=== PATIENT | male | born 1940 | race Caucasian/White ===

== ENCOUNTER 2020-08-31 19:16 | Emergency (ER) | payer MEDICARE, SELFPAY ==
--- NOTE | ~2020-08-31 | CT_ITS ---
EXAMINATION: CT ABDOMEN AND PELVIS WITHOUT CONTRAST CLINICAL INFORMATION: Left-sided back and flank pain. Concern for fracture. Rule out stones or mass. COMPARISON: No priors. TECHNIQUE: Multidetector volumetric imaging was performed from the superior aspect of the liver through the pubic symphysis. Sagittal and coronal reformatted images were obtained on the technologist's workstation. This CT examination was performed using dose optimization techniques as appropriate, variously including the following: *Automated exposure control *Adjustment of mA and/or kV according to patient size (this includes techniques or standardized protocols for targeted exams where dose is matched to indication/reason for exam; i.e. extremities or head) *Use of iterative reconstruction technique DLP: 904 mGy-cm FINDINGS: LINES AND TUBES: None. LOWER THORAX: Partially visualized right lower lobe calcification, likely a granuloma. Lung bases are clear. Heart is normal in size. No pericardial effusion or thickening. HEPATOBILIARY: Liver is normal in size, contour, and attenuation. No focal hepatic lesions. The gallbladder is present and otherwise unremarkable. No biliary dilatation. SPLEEN: Punctate splenic calcifications likely small granulomas. Small splenule noted. PANCREAS: Mild atrophy. No solid or cystic pancreatic lesion. Main pancreatic duct is normal in caliber. ADRENALS: Normal. KIDNEYS/URETERS: Right kidney is atrophic. Normal left kidney. Left ureter is normal throughout its course. Right ureter is normal throughout its course. BLADDER: Normal. PELVIC ORGANS: Prostate is enlarged. Seminal vesicles are normal in caliber. GI TRACT: No dilated or thick walled loops of bowel. Diverticulosis. No evidence of diverticulitis. The appendix is unremarkable. PERITONEUM/RETROPERITONEUM AND MESENTERY: No intraperitoneal free air or fluid. LYMPH NODES: No pathologically enlarged lymph nodes. VESSELS: Normal in caliber. BONES AND SOFT TISSUES: No aggressive osseous lesions. Multilevel degenerative disc disease. Small fat-containing left inguinal hernia. CT/CT abdomen pelvis wo con IMPRESSION: --No renal, ureteral, or urinary bladder calculi. --Atrophic right kidney. --No acute fracture. --Colonic diverticulosis. No evidence of diverticulitis. --Prostatomegaly. --Small fat-containing left inguinal hernia. --Mild pancreatic atrophy.
[2020-08-31 19:17] VITALS: BMI 30.4
[2020-08-31 19:24] VITALS: BP 134/79; PULSE 72; RESP 18; TEMP 37; O2SAT 98
--- NOTE | 2020-08-31 21:09 | ED.BACK ---
HPI - Back Pain/Injury General Chief Complaint: Back Pain/Injury Stated Complaint: Back pain Time Seen by Provider: 08/31/20 19:25 History of Present Illness HPI Narrative: Patient complains of worsening back pain with movement since a fall where he tripped and fell 2 weeks ago in his house and fell backwards onto his buttocks, pain has not gone away and in fact has gotten slightly worse, there is no numbness weakness or tingling there is no radiation of pain there is no head injury no neck pain, he did not faint or feel faint and he remembers everything about the trip and fall Related Data Allergies Allergy/AdvReac Type Severity Reaction Status Date / Time codeine Allergy Unknown Unknown Verified 08/31/20 19:22 naproxen Allergy Unknown Unknown Verified 08/31/20 19:22 Review of Systems Review of Systems: Positive for back pain Negatives are no fever no chills no dizziness no weakness no fainting no feeling faint no headache no neck pain no chest pain no shortness of breath no changes to bowel or bladder no incontinence no dysuria no skin rash no wounds no motor weakness no loss of sensation Yes all other systems are reviewed and are negative PMFSH Past Medical History Source: nursing notes reviewed Medical History (Updated 08/31/20 @ 19:20 by Karen Ferrell) Gout HTN (hypertension) Social History Social History Smoked in Last 30 Days: No Use of substances other than those prescribed or required for medical reasons: No Advance Directives: No Physical Exam Vital Signs: Vital Signs: Last Vital Signs Temp 98.6 F 08/31/20 19:24 Pulse 72 08/31/20 19:24 Resp 18 08/31/20 19:24 BP 134/79 08/31/20 19:24 Pulse Ox 98 08/31/20 19:24 Body Mass Index 30.4 General appearance no acute distress Head is normocephalic atraumatic Neck is supple nontender Chest is clear to auscultation bilateral Heart no murmur Abdomen soft nontender The back had lower lumbar paraspinal tenderness worse on the right side, there was no focal bony tenderness no deformities no changes to the skin no redness no wounds no rashes, pain was easily reproduced with movement Extremities full range of motion x4 Neuro no gross motor or sensory deficit Course Course Course Narrative: Patient remains comfortable in the ER with his family Pending CT results case was signed out to physician eddiato at 21:00 The plan is to follow and address any abnormalities on the CT and for discharge patient is requesting lidocaine patch Tylenol and muscle relaxer
== END 2020-08-31 22:14 | disposition home or self-care (01) ==
PROVIDERS: Emergency Provider Emergency Medicine
DX: M54.5 Low back pain (principal); I10 Essential (primary) hypertension
CPT/HCPCS: 74176; 99284

== ENCOUNTER 2023-07-06 20:15 | Observation (INO) | payer MEDICARE, SELFPAY ==
--- NOTE | 2023-07-06 | ECG_ITS ---
Test Reason : BRADYARDICYA Blood Pressure : / mmHG Vent. Rate : 080 BPM Atrial Rate : 000 BPM P-R Int : 000 ms QRS Dur : 080 ms QT Int : 378 ms P-R-T Axes : 000 -43 045 degrees QTc Int : 435 ms Artifact in tracing Likely sinus rhythm Left axis deviation Abnormal ECG No previous ECGs available Referred By: Generic ED Physician Electronically Signed By:GRACY OSMAN
--- NOTE | ~2023-07-06 | XR_ITS ---
EXAMINATION: XR CHEST CLINICAL INFORMATION: Weakness. COMPARISON: None available. TECHNIQUE: 2 views of the chest were obtained. FINDINGS: Lungs are clear. No pulmonary vascular congestion. There is no pleural effusion. The heart size is normal. The cardiac and mediastinal contours are normal. . There are multilevel degenerative changes of dorsal spine. XR/XR chest 2V IMPRESSION: Unremarkable examination.
--- NOTE | 2023-07-06 20:36 | MHC.EDTECH ---
PATIENT EKG TAKEN AND WAS READ BY PROVIDER .
[2023-07-06 20:42] VITALS: BP 137/71; PULSE 83; RESP 18; TEMP 37.3; O2SAT 95; BMI 32.2
--- NOTE | 2023-07-06 20:47 | ED_ITS ---
HPI - General Adult General Chief complaint: General Medical Stated complaint: heart monitor placed today/chills/shaking Time Seen by Provider: 07/07/23 00:16 Source: patient Mode of arrival: ambulatory Limitations: no limitations History of Present Illness ED Provider: corrie GARDNER narrative: Patient is 82 years old with history of AFib went to [facility] for bradycardia Holter was placed came home with severe chills and weakness no cough no urinary complaints no abdominal pain no nausea vomiting patient is apparently normal prior to getting the Holter placed Related Data Previous Rx's ?Medication ?Instructions ?Recorded cyclobenzaprine 10 mg tablet 10 mg PO TID PRN muscle spasm #14 08/31/20 tabs lidocaine 4 % topical patch 1 patch topical DAILY PRN pain #10 08/31/20 ea Allergies Allergy/AdvReac Type Severity Reaction Status Date / Time codeine Allergy Unknown Unknown Verified 07/06/23 20:47 naproxen Allergy Unknown Unknown Verified 07/06/23 20:47 Review of Systems 2 Review of Systems: Yes all other systems are reviewed and are negative [facility] Past Medical History Medical History Gout HTN (hypertension) Social History Social History Smoked in Last 30 Days: No Use of substances other than those prescribed or required for medical reasons: No Advance Directives: No Advance Directives Information Provided: No Do you have a plan to hurt others: No Plan Physical Exam ED Vital Signs: Vital Signs - 24 hr 07/06/23 20:42 07/06/23 22:56 07/07/23 00:31 Temperature 99.2 F 100.1 F 99.7 F Pulse Rate 83 88 84 Respiratory Rate 18 18 20 Blood Pressure 137/71 137/62 125/67 Pulse Oximetry 95 93 94 Oxygen Delivery Method Room Air Room Air Room Air 07/07/23 01:35 07/07/23 01:45 07/07/23 02:15 Temperature 99.0 F Pulse Rate 79 78 78 Respiratory Rate 20 17 22 H Blood Pressure 116/61 114/61 111/65 Pulse Oximetry 95 94 95 Oxygen Delivery Method Room Air Room Air 07/07/23 04:32 07/07/23 06:17 Temperature 98.0 F 98.0 F Pulse Rate 78 61 Respiratory Rate 16 14 Blood Pressure 133/79 126/63 Pulse Oximetry 97 96 Oxygen Delivery Method Room Air Room Air BMI result Body Mass Index 32.2 Appearance: Alert. Oriented X3. No acute distress. Eyes: No pallor or icterus ENT: Pharynx normal. Oral Mucosa moist Neck: Normal inspection. Neck supple. CVS: Normal heart rate and rhythm. Pulses normal. Respiratory: No respiratory distress. Equal air entry bilateral, no wheezing/rales/rhonchi Abdomen: Soft and nontender. Bowel sounds are present, no mass palpable, no CVA tenderness Skin: Skin warm and dry. Normal skin color. Normal skin turgor. Extremities: No lower extremity edema. No calf tenderness Neuro: Oriented X 3. No motor deficit. Course Course Course Narrative: RME performed by Liliana Mathew PA-C. Patient is an 82 year old assigned male at presenting to the emergency department with sudden onset chills, extremity shaking, and feeling generally unwell. Patient has a holter monitor on to monitor for bradycardic events. Detailed physical exam and review of systems are deferred to the physical biochemist. EKG, labs, imaging, and swabs ordered. Patient placed back in the waiting room pending room availability and results. Medications Administered Discontinued Medications Generic Name Dose Route Start Last Admin Trade Name Freq PRN Reason Stop Dose Admin Acetaminophen 650 mg 07/07/23 00:18 07/07/23 00:29 Acetaminophen 325 Mg Tablet PO 07/07/23 00:19 650 mg ONCE ONE Administration Sodium Chloride 1,000 mls @ 999 mls/hr 07/07/23 00:18 07/07/23 01:29 Ns IV 07/07/23 01:18 Infused .Q1H1M ONE Infusion Ceftriaxone Sodium 1 gm/ 50 mls @ 100 mls/hr 07/07/23 00:18 07/07/23 01:00 Sodium Chloride IV 07/07/23 00:47 Infused ONCE ONE Infusion Medical Decision Making Medical Decision Making [facility] Narrative: Patient with high fever with leukocytosis source of infection on clear will admit patient for bacteremia IV antibiotic was given pending blood culture Differential Diagnosis Differential Diagnoses: The differential diagnosis associated with the presentation includes Pneumonia/UTI/bacteremia Admission/Observation Consideration of admission/observation: Escalation of care including admission/observation considered Consult Healthcare Provider Management of the patient was discussed with: Hospitalist Lab Data MDM Lab Attestation statement: I reviewed the patient's lab results. 07/06/23 21:10 07/06/23 21:10 Labs: Lab Results 07/06/23 07/07/23 07/07/23 Range/Units 21:10 00:27 01:57 WBC 20.1 H (4.8-10.8) X10*3/uL RBC 4.22 L (4.60-5.80) X10*6/uL Hgb 14.0 (14.0-18.0) g/dl Hct 41.8 L (42.0-52.0) % MCV 99.1 H (80.0-98.0) fL MCH 33.2 H (27.0-33.0) pg MCHC 33.5 (31.0-36.0) g/dl RDW 16.0 (11.0-16.0) % Plt Count 320 (160-400) X10*3/uL MPV 10.7 (9.4-12.4) fL Immature Gran % (Auto) 0.4 (0.0-0.4) % Neut % (Auto) 89.4 H (45-73) % Lymph % (Auto) 5.0 L (20-40) % [place] % (Auto) 4.6 (2-11) % Eos % (Auto) 0.3 (0-4) % Baso % (Auto) 0.3 (0-2) % Lymph # (Auto) 1.0 L (1.2-4.9) X10*3/uL [place] # (Auto) 0.9 (0.1-1.2) X10*3/uL Eos # (Auto) 0.1 (0.0-0.4) X10*3/uL Baso # (Auto) 0.1 (0.0-0.2) X10*3/uL Abs Immat Gran (auto) 0.09 H (0.00-0.03) X10*3/uL Absolute Neuts (auto) 17.9 H (2.0-8.3) x10*3/uL Absolute Nucleated RBC 0.000 (0.0-0.012) X10*3/uL Nucleated RBC % (auto) 0.0 (0.0-0.2) /100WBC PT 16.8 H (11.1-13.3) SEC INR 1.4 H (0.9-1.1) APTT 34.5 (26.0-36.8) SEC Sodium 139 (135-145) mmol/L Potassium 4.2 (3.3-5.1) mmol/L Chloride 106 (96-108) mmol/L Carbon Dioxide 21 L (22-29) mmol/L Anion Gap 16 (12-20) BUN 9 (9-16) mg/dL Creatinine 1.15 (0.5-1.4) mg/dL Estim Creat Clear Calc 56.4 Estimated GFR > 60 Random Glucose 112 (60-115) mg/dL Lactic Acid 1.3 (0.5-2.0) mmol/L Calcium 9.3 (8.4-10.2) mg/dL Magnesium 2.2 (1.6-2.6) mg/dL Total Bilirubin 1.0 (0.0-1.0) mg/dL AST 22 (5-37) U/L ALT 18 (0-40) U/L Alkaline Phosphatase 138 H (39-117) U/L Troponin I High Sens 17.9 (<3.5-35.0) ng/L Total Protein 7.6 (6.5-8.0) g/dL Albumin 4.3 (3.5-5.0) g/dL Urine Color Yellow Urine Appearance Clear Urine pH 7.0 (5.0-9.0) Ur Specific [place] 1.015 (1.005-1.025) Urine Protein Negative (Neg-Trace) mg/dL Urine Glucose (UA) Negative (Negative) mg/dL Urine Ketones Negative (Negative) mg/dL Urine Blood Negative (Negative) Urine Nitrite Negative (Negative) Ur Leukocyte Esterase Negative (Negative) Influenza Type A (PCR) NEGATIVE (Negative) Influenza Type B (PCR) NEGATIVE (Negative) RSV RNA Qual (PCR) NEGATIVE (Negative) SARS-CoV-2 RNA (RT-PCR) NEGATIVE (Negative) Independent Interpretation I performed an independent interpretation of an: Plain X-Ray Radiology Impression Discussion of test interpretation with radiology: I have reviewed the radiologist's reading. Discharge Plan Discharge Clinical Impression: Fever, Leukocytosis Patient Disposition: Admitted As Inpatient Print Language: Mexican
[2023-07-06 21:15] LABS: MANUAL DIFF FLAG NO
[2023-07-06 21:16] LABS: Basophils Absolute Auto 0.1 X10*3/uL (0.0-0.2); Basophils Percent Auto 0.3 % (0-2); Eosinophils Absolute Auto 0.1 X10*3/uL (0.0-0.4); Eosinophils Percent Auto 0.3 % (0-4); Hematocrit 41.8 % (42.0-52.0); Imm Gran Abs Auto 0.09 X10*3/uL (0.00-0.03); Imm Gran Pct Auto 0.4 % (0.0-0.4); Mean Corpuscular HGB Conc 33.5 g/dl (31.0-36.0); Mean Corpuscular Hemoglobin 33.2 pg (27.0-33.0); Mean Corpuscular Volume 99.1 fL (80.0-98.0); Mean Platelet Volume 10.7 fL (9.4-12.4); Monocytes Absolute Auto 0.9 X10*3/uL (0.1-1.2); Monocytes Percent Auto 4.6 % (2-11); Neutrophils Absolute Auto 17.9 x10*3/uL (2.0-8.3); Neutrophils Percent Auto 89.4 % (45-73); Platelet Count 320 X10*3/uL (160-400); Red Blood Count 4.22 X10*6/uL (4.60-5.80); White Blood Count 20.1 X10*3/uL (4.8-10.8)
--- NOTE | 2023-07-06 21:16 | MHC.EDTECH ---
PATIENT BLOOD DRAWN AND RSV/COVID SWAB COLLECTED AND SENT TO LAB .
[2023-07-06 21:23] LABS: INTERNATIONAL NORM RATIO 1.4 (0.9-1.1); Prothrombin Time 16.8 SEC (11.1-13.3)
[2023-07-06 21:26] LABS: Partial Thromboplastin Time 34.5 SEC (26.0-36.8)
[2023-07-06 21:42] LABS: Alanine Aminotransferase 18 U/L (0-40); Albumin Level 4.3 g/dL (3.5-5.0); Alkaline Phosphatase 138 U/L (39-117); Anion Gap 16 (12-20); Aspartate Amino Transferase 22 U/L (5-37); Blood Urea Nitrogen 9 mg/dL (9-16); Calcium 9.3 mg/dL (8.4-10.2); Carbon Dioxide 21 mmol/L (22-29); Chloride 106 mmol/L (96-108); Creatinine Clr Calc Pharmacy 56.4; Estimated Glomerular Filt Rate > 60; Glucose Random 112 mg/dL (60-115); Magnesium 2.2 mg/dL (1.6-2.6); Potassium 4.2 mmol/L (3.3-5.1); Sodium 139 mmol/L (135-145); Total Protein 7.6 g/dL (6.5-8.0)
[2023-07-06 21:49] LABS: Troponin-I High Sensitivity 17.9 ng/L (<3.5-35.0)
[2023-07-06 22:09] LABS: Influenza A PCR NEGATIVE (Negative); Influenza B PCR NEGATIVE (Negative); Resp Syncy Virus RNA Qual PCR NEGATIVE (Negative); SARS COV2 PCR INHOUSE NEGATIVE (Negative)
[2023-07-06 22:56] VITALS: BP 137/62; PULSE 88; RESP 18; TEMP 37.8; O2SAT 93
--- NOTE | 2023-07-06 23:03 | PC.NURSE ---
pt from home, a&ox4, respirations even and unlabored, reports increasing dizziness and weakness since 530pm today. pt reports being seen at [facility] and being put on a halter monitor due to pt being bradycardic. pt denies n/v/d at this time. pt 2 person assist from wheelchair to bed. pt placed on awake overnight monitor. 18G placed in left AC.
--- NOTE | 2023-07-06 23:45 | PC.NURSE ---
aware of pt vital signs at this time.
[2023-07-07] VITALS (11 sets, daily range): BP systolic 111–155; BP diastolic 43–79; PULSE 56–84; RESP 14–22; TEMP 36.4–37.6; O2SAT 94–97; BMI 28.3
--- NOTE | 2023-07-07 00:04 | MHC.EDTECH ---
PT changed into a hospital gown and placed on a glove turner and former automatic. Red fall precaution socks and wristband put on pt
[2023-07-07] MEDS: 0.9 % Sodium Chloride 1,000 ML 999 ML IV (00:28)
[2023-07-07] MEDS: Acetaminophen 325 MG TABLET 650 MG PO (00:29)
[2023-07-07] MEDS: cefTRIAXone sodium 1 GM in 0.9 % Sodium Chloride 50 ML IV (00:30)
--- NOTE | 2023-07-07 00:32 | PC.NURSE ---
pt medicated epr apr, for fever and antibiotics administered. fluid bolus began at this time.
[2023-07-07 00:49] LABS: Lactic Acid 1.3 mmol/L (0.5-2.0)
--- NOTE | 2023-07-07 01:56 | PC.NURSE ---
urine sample obtained and sent to lab.
[2023-07-07 02:04] LABS: Appearance Urine Clear; Color Urine Yellow; Glucose Urine UA Negative (Negative); Leukocyte Esterase Urine Negative (Negative); Nitrite Urine Negative (Negative); Specific Gravity - Urine 1.015 (1.005-1.025); Urine Blood Negative (Negative); Urine Ketones Negative (Negative); Urine Protein Negative (Neg-Trace)
--- NOTE | 2023-07-07 09:09 | PC.NURSE ---
a&ox4. vss and up to date. nsr on the supervisor rework. pt resting comfortably in no apparent distress. pt denies pain/has no acute complaints. pt resting comfortably w/ the lights dimmed. no sob/wob noted. family bedside for support. pt pending admission at this time. plan of care ongoing. call brewer placed within reach.
--- NOTE | 2023-07-07 10:07 | PC.NURSE ---
pt speaking w/ hospitalist in regards to plan of care at this time.
--- NOTE | 2023-07-07 11:34 | P.HPHOSP_ITS ---
History of Present Illness Date of Service: 07/07/23 Attending physician on admission: José Luis Gu Chief Complaint: rigors 82-year-old male with history of hypertension, CKD stage 3, paroxysmal atrial fibrillation anticoagulated with Eliquis, mild aortic stenosis presented to the ED earlier last night for evaluation of shaking chills that started shortly after arriving home from [facility] where he had a Holter monitor placed due to bradycardia. He states he went home and a let us and tomato and shortly after developed subjective fevers with rigors and malaise. He denies any other symptoms including known sick contacts, recent illness, sore throat, congestion, headache, abdominal pain, nausea, vomiting, diarrhea, cough, lightheadedness, palpitations, shortness of breath, wheezing, or chest pain. He does endorse an episode of dysuria last night without recurrence but denies any hematuria, increased urinary frequency, urgency, or flank pain. On arrival, patient had mildly elevated temperature of 100.1 degrees, vital signs otherwise stable. No bradycardia noted. He does have a significant leukocytosis of 20.1 with 89.4% neutrophil predominance. Renal function electrolyte levels are normal. Troponin undetectable but within normal limits. Urinalysis is unremarkable. Negative for COVID-19, RSV, influenza. Chest x-ray is unremarkable. EKG shows accelerated junctional rhythm, rate [address]/T-wave abnormality. He will be observed overnight for fever of unspecified origin. Review of Systems 2 Review of Systems: Yes all other systems are reviewed and are negative [facility] Medical History (Updated 07/07/23 @ 11:41 by BLACK Caro) CKD (chronic kidney disease), stage III Aortic stenosis Atrial fibrillation Gout HTN (hypertension) Social History Smoked in Last 30 Days: No Use of substances other than those prescribed or required for medical reasons: No Advance Directives: No Advance Directives Information Provided: No Do you have a plan to hurt others: No Plan Meds Allergies Allergy/AdvReac Type Severity Reaction Status Date / Time codeine Allergy Unknown Unknown Verified 07/06/23 20:47 naproxen Allergy Unknown Unknown Verified 07/06/23 20:47 Home Medications ?Medication ?Instructions ?Recorded ?Confirmed ?Last Taken ?Type apixaban 2.5 mg tablet (Eliquis) 2.5 mg PO BID 07/07/23 07/07/23 07/06/23 History metoprolol tartrate 25 mg tablet 12.5 mg PO BID 07/07/23 07/07/23 07/06/23 History Physical Exam 2 Vital Signs and Narrative: Vital Signs: Last Vital Signs Temp 98.4 F 07/07/23 09:06 Pulse 64 07/07/23 09:06 Resp 16 07/07/23 09:06 BP 113/43 L 07/07/23 09:06 Pulse Ox 96 07/07/23 09:06 O2 Del Method Room Air 07/07/23 09:06 BMI result Body Mass Index 32.2 Constitutional - Awake and Alert, No apparent distress Eyes - PERRLA, EOMI Cardiovascular - S1S2, RRR, II/ systolic ejection murmur, No edema Respiratory - Normal lung expansion, Normal respiratory effort, No respiratory distress, CTA bilaterally Gastrointestinal - NT / ND; +BS; No rebound or guarding Extremities - no calf tenderness bilaterally, no swelling Skin - Warm/Dry Neurological - Alert & oriented x3 Psychological - Appropriate affect Results Labs 07/06/23 21:10 07/06/23 21:10 Labs: Laboratory Results - last 24 hr 07/06/23 07/07/23 07/07/23 21:10 00:27 01:57 MCV 99.1 H MCH 33.2 H MCHC 33.5 RDW 16.0 Plt Count 320 MPV 10.7 Immature Gran % (Auto) 0.4 Neut % (Auto) 89.4 H Lymph % (Auto) 5.0 L [place] % (Auto) 4.6 Eos % (Auto) 0.3 Baso % (Auto) 0.3 Lymph # (Auto) 1.0 L [place] # (Auto) 0.9 Eos # (Auto) 0.1 Baso # (Auto) 0.1 Abs Immat Gran (auto) 0.09 H Absolute Neuts (auto) 17.9 H Absolute Nucleated RBC 0.000 Nucleated RBC % (auto) 0.0 PT 16.8 H INR 1.4 H APTT 34.5 Anion Gap 16 Estim Creat Clear Calc 56.4 Estimated GFR > 60 Random Glucose 112 Lactic Acid 1.3 Calcium 9.3 Magnesium 2.2 Total Bilirubin 1.0 AST 22 ALT 18 Alkaline Phosphatase 138 H Troponin I High Sens 17.9 Total Protein 7.6 Albumin 4.3 Urine Color Yellow Urine Appearance Clear Urine pH 7.0 Ur Specific [place] 1.015 Urine Protein Negative Urine Glucose (UA) Negative Urine Ketones Negative Urine Blood Negative Urine Nitrite Negative Ur Leukocyte Esterase Negative Influenza Type A (PCR) NEGATIVE Influenza Type B (PCR) NEGATIVE RSV RNA Qual (PCR) NEGATIVE SARS-CoV-2 RNA (RT-PCR) NEGATIVE Imaging Radiologist's Impressions: Impressions Chest X-Ray 07/06/23 20:58 IMPRESSION: Unremarkable examination. Assessment and Plan (1) Leukocytosis: Status: Acute (2) Fever: Status: Acute Plan 82-year-old male with history of hypertension, CKD stage 3, paroxysmal atrial fibrillation anticoagulated with Eliquis, mild aortic stenosis to be observed for further evaluation of fever of unknown origin with migraines #Fevers of unknown origin with rigors and leukocytosis -pt reports rigors at home. Low grade fever 100.1 in hospital. WBC 20.1. Lactic acid wnl -CXR negative. UA negative. Will repeat UA given dysuria -Check RPP -Received 1g rocephin in the ED. Hold on further abx for now -Blood cultures pending -Follow cbc/cultures #Cardiac murmur -II/. If BC positive, recommend SWATHI # CKD stage 3 -renal function baseline # hypertension -hold metoprolol due to reported bradycardia and controlled blood pressures # paroxysmal atrial fibrillation-rate controlled -[facility] records reviewed -currently wearing Holter monitor due to bradycardia. EKG with accelerated junctional rhythm -continue Eliquis for anticoagulation. Hold metoprolol DVT prophylaxis-Eliquis DNR/DNI Quality Stroke Does the patient have a stroke diagnosis?: No VTE Prior VTE?: No VTE Risk Level:: Medical - moderate - high VTE Device Contraindication: Treatment Not Indicated VTE Drug Contraindication: N/A - Med Ordered
--- NOTE | 2023-07-07 11:40 | PHA.MEDREC ---
Pharmacy Consult ? Medication Reconciliation Pharmacy has completed the medication reconciliation. spoke with patient to confirm medications. He reports he only took AM doses of his medications yesterday.
--- NOTE | 2023-07-07 12:01 | PC.NURSE ---
report given to GENESIS Pérez in overflow at this time.
[2023-07-07 12:19] LABS: Appearance Urine Clear; Color Urine Yellow; Glucose Urine UA Negative (Negative); Leukocyte Esterase Urine Negative (Negative); Nitrite Urine Negative (Negative); PH 7.5 (5.0-9.0); UMIC TRIGGER UACC YES; Urine Blood Moderate (2+) (Negative); Urine Ketones Negative (Negative); Urine Protein Negative (Neg-Trace)
[2023-07-07 13:05] LABS: Bacteria Urine None Seen (None Seen); Hyaline Casts Urine 0-2 /LPF (0-2); RBC Urine >20 /HPF (0-2); Squamous Epithelial Cell Urine 0-2 /HPF (0-2); WBC Urine 0-5 /HPF (0-5)
[2023-07-07 16:44] LABS: Adenovirus PCR Not Detected (Not Detect.); Bordetella parapertussis PCR Not Detected (Not Detect.); Bordetella pertussis PCR Not Detected (Not Detect.); Chlamydia pneumoniae PCR Not Detected (Not Detect.); Coronavirus 229E PCR Not Detected (Not Detect.); Coronavirus HKU1 PCR Not Detected (Not Detect.); Coronavirus NL63 PCR Not Detected (Not Detect.); Coronavirus OC43 PCR Not Detected (Not Detect.); Human metapneumovirus PCR Not Detected (Not Detect.); Influenza A PCR Not Detected (Not Detect.); Influenza B PCR Not Detected (Not Detect.); Mycoplasma pneumoniae PCR Not Detected (Not Detect.); Parainfluenza 1 PCR Not Detected (Not Detect.); Parainfluenza 2 PCR Not Detected (Not Detect.); Parainfluenza 3 PCR Not Detected (Not Detect.); Parainfluenza 4 PCR Not Detected (Not Detect.); RSV PCR Not Detected (Not Detect.); Rhino/Enterovirus PCR Not Detected (Not Detect.)
[2023-07-07 16:45] LABS: SARS-CoV-2 PCR Not Detected (Not Detect.)
[2023-07-07] MEDS: 0.9 % Sodium Chloride Flush 3 ML SYRINGE IVFLUSH ×2 (17:39→22:54)
[2023-07-07] MEDS: Apixaban 2.5 MG TABLET PO (21:22)
--- NOTE | 2023-07-07 21:54 | MHC.CM.PN ---
NIA 07/06. Original given to patient and copy to medical records. CM met with patient assigned to observation in Over Flow Unit. Pt is waiting for a bed. A&Ox4. Lives with , Puja. 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 Uses a rollator. Has no services. PCP is Cassandra Limon NP. HCP is at home. HCP#1/granddaughter Lena Wen ([phone]). HCP #2/DIL Celia Barahona ([phone]). THRIVE assessment completed-no needs identified. D/C plan: Home without services. Patient will arrange transportation home by family. CM will follow for any discharge needs.
[2023-07-08 02:54] VITALS: BP 160/81; PULSE 65; RESP 18; TEMP 36.3; O2SAT 96
[2023-07-08 06:22] LABS: MANUAL DIFF FLAG NO
[2023-07-08 06:39] LABS: Basophils Absolute Auto 0.1 X10*3/uL (0.0-0.2); Basophils Percent Auto 0.5 % (0-2); Eosinophils Absolute Auto 0.3 X10*3/uL (0.0-0.4); Eosinophils Percent Auto 2.1 % (0-4); Hematocrit 37.8 % (42.0-52.0); Hemoglobin 12.6 g/dl (14.0-18.0); Imm Gran Abs Auto 0.09 X10*3/uL (0.00-0.03); Imm Gran Pct Auto 0.6 % (0.0-0.4); Lymphocytes Absolute Auto 2.4 X10*3/uL (1.2-4.9); Lymphocytes Percent Auto 15.6 % (20-40); Mean Corpuscular HGB Conc 33.3 g/dl (31.0-36.0); Mean Corpuscular Hemoglobin 32.8 pg (27.0-33.0); Mean Corpuscular Volume 98.4 fL (80.0-98.0); Monocytes Absolute Auto 0.9 X10*3/uL (0.1-1.2); Monocytes Percent Auto 5.8 % (2-11); Neutrophils Absolute Auto 11.4 x10*3/uL (2.0-8.3); Neutrophils Percent Auto 75.4 % (45-73); Platelet Count 279 X10*3/uL (160-400); Red Blood Count 3.84 X10*6/uL (4.60-5.80); Red Cell Distribution Width 16.1 % (11.0-16.0); White Blood Count 15.2 X10*3/uL (4.8-10.8)
[2023-07-08 06:46] LABS: Anion Gap 11 (12-20); Blood Urea Nitrogen 10 mg/dL (9-16); Calcium 9.4 mg/dL (8.4-10.2); Carbon Dioxide 23 mmol/L (22-29); Chloride 109 mmol/L (96-108); Creatinine Clr Calc Pharmacy 50.4; Estimated Glomerular Filt Rate 57; Glucose Random 79 mg/dL (60-115); Potassium 3.9 mmol/L (3.3-5.1); Sodium 139 mmol/L (135-145)
[2023-07-08 08:00] VITALS: BP 145/69; PULSE 60; RESP 12; TEMP 37.3; O2SAT 97
[2023-07-08] MEDS: Apixaban 2.5 MG TABLET PO (08:14)
[2023-07-08] MEDS: 0.9 % Sodium Chloride Flush 3 ML SYRINGE IVFLUSH (08:14)
[2023-07-08 12:00] VITALS: BP 136/66; PULSE 60; RESP 12; TEMP 36.2; O2SAT 97
--- NOTE | 2023-07-08 12:35 | P.DS_ITS ---
DS: Providers Provider Date of Service: 07/08/23 Date of admission: 07/07/23 11:31 Date of discharge: 07/08/23 Primary care physician: Cassandra Limon NP Attending physician on discharge: José Luis Gu Discharging clinician: Brooklynn Torres DS: Diagnosis Discharge Diagnosis (1) Leukocytosis: Status: Acute (2) Fever: Status: Acute DS: Summary Hospital Course Hospital Course: From H&P on the day of admission 82-year-old male with history of hypertension, CKD stage 3, paroxysmal atrial fibrillation anticoagulated with Eliquis, mild aortic stenosis presented to the ED earlier last night for evaluation of shaking chills that started shortly after arriving home from [facility] where he had a Holter monitor placed due to bradycardia. He states he went home and a let us and tomato and shortly after developed subjective fevers with rigors and malaise. He denies any other symptoms including known sick contacts, recent illness, sore throat, congestion, headache, abdominal pain, nausea, vomiting, diarrhea, cough, lightheadedness, palpitations, shortness of breath, wheezing, or chest pain. He does endorse an episode of dysuria last night without recurrence but denies any hematuria, increased urinary frequency, urgency, or flank pain. On arrival, patient had mildly elevated temperature of 100.1 degrees, vital signs otherwise stable. No bradycardia noted. He does have a significant leukocytosis of 20.1 with 89.4% neutrophil predominance. Renal function electrolyte levels are normal. Troponin undetectable but within normal limits. Urinalysis is unremarkable. Negative for COVID-19, RSV, influenza. Chest x-ray is unremarkable. EKG shows accelerated junctional rhythm, rate [address]/T-wave abnormality. He will be observed overnight for fever of unspecified origin. Fevers and leukocytosis pt reports rigors at home. Low grade fever 100.1 in hospital. WBC 20.1. Lactic acid wnl CXR negative. UA negative. Repeat UA with microscopic hematuria but no white cells or bacteria to suggest infection. Respiratory pathogen panel also negative. Patient denies abdominal pain, diarrhea, respiratory symptoms. No further fever patient feels well. Blood cultures negative at 24 hours, white blood cell count trending down to 15. Patient prefers to return home, he understands that blood cultures are only negative at 24 hours. Advise that we would call to have him return to the hospital if blood cultures turn positive. He understands and is in agreement with the current plan paroxysmal atrial fibrillation-rate controlled -[facility] [place] -currently wearing Holter monitor due to bradycardia. EKG with accelerated junctional rhythm -continue Eliquis for anticoagulation. Hold metoprolol. Recommend outpatient follow-up with at [facility] Time Attestation Discharge Coordination Time (in mins): 32 Quality: Safe Use of Opioids Does Pt have an Active Cancer Diagnosis on the Problem List?: No Quality: Stroke Does the patient have a stroke diagnosis?: No Physical Exam Vital Signs: Vital Signs: Last Vital Signs Temp 99.1 F 07/08/23 08:00 Pulse 60 07/08/23 08:00 Resp 12 07/08/23 08:00 BP 145/69 H 07/08/23 08:00 Pulse Ox 97 07/08/23 08:00 O2 Del Method Room Air 07/08/23 08:00 BMI result Body Mass Index 28.3 Const: General: cooperative, comfortable, no acute distress, alert and awake Orientation/consciousness: patient oriented x3 Neuro: General: patient oriented x3 DS: Data Data Completed and Pending Labs on day of discharge: Laboratory Results - last 24 hr 07/07/23 07/07/23 07/08/23 12:10 15:35 05:42 WBC 15.2 H RBC 3.84 L Hgb 12.6 L Hct 37.8 L MCV 98.4 H MCH 32.8 MCHC 33.3 RDW 16.1 H Plt Count 279 MPV 11.0 Immature Gran % (Auto) 0.6 H Neut % (Auto) 75.4 H Lymph % (Auto) 15.6 L [place] % (Auto) 5.8 Eos % (Auto) 2.1 Baso % (Auto) 0.5 Lymph # (Auto) 2.4 [place] # (Auto) 0.9 Eos # (Auto) 0.3 Baso # (Auto) 0.1 Abs Immat Gran (auto) 0.09 H Absolute Neuts (auto) 11.4 H Absolute Nucleated RBC 0.000 Nucleated RBC % (auto) 0.0 Sodium 139 Potassium 3.9 Chloride 109 H Carbon Dioxide 23 Anion Gap 11 L BUN 10 Creatinine 1.21 Estim Creat Clear Calc 50.4 Estimated GFR 57 Random Glucose 79 Calcium 9.4 Urine Color Yellow Urine Appearance Clear Urine pH 7.5 Ur Specific [place] 1.010 Urine Protein Negative Urine Glucose (UA) Negative Urine Ketones Negative Urine Blood Moderate (2+) H Urine Nitrite Negative Ur Leukocyte Esterase Negative Urine RBC >20 H Urine WBC 0-5 Ur Squamous Epith Cells 0-2 Urine Bacteria None Seen Hyaline Casts 0-2 Respiratory Panel Zeng See Note Adenovirus (Rapid PCR) Not Detected B.pert (TEM-PCR) Not Detected B.parapertussis DNA PCR Not Detected C. pneumoniae DNA (PCR) Not Detected Coronavirus OC43 (PCR) Not Detected Coronavirus HKU1 (PCR) Not Detected Coronavirus 229E (PCR) Not Detected Coronavirus NL63 (PCR) Not Detected Human Metapneumovir PCR Not Detected Influenza A (RT-PCR) Not Detected Influenza B (RT-PCR) Not Detected M. pneumoniae (PCR) Not Detected Parainfluenza 1 (PCR) Not Detected Parainfluenza 2 (PCR) Not Detected Parainfluenza 3 (PCR) Not Detected Parainfluenza 4 (PCR) Not Detected RSV (PCR) Not Detected Entero/Rhino (PCR) Not Detected SARS-CoV-2 RNA (RT-PCR) Not Detected Preliminary micro results at discharge 07/07/23 00:27 Blood Culture - Preliminary Blood - Venous No growth after 24 hours. 07/07/23 00:27 Blood Culture - Preliminary Blood - Venous No growth after 24 hours. Discharge Plan Discharge Anticipated Discharge Date/Time: 07/08/23 12:40 Patient Disposition: Home, Self-Care Referrals: Cassandra Limon NP [Primary Care Provider] - 1 Week Discharge Medications: Continued Eliquis 2.5 mg tablet 2.5 mg PO BID Held metoprolol tartrate 25 mg tablet 12.5 mg PO BID Hold Instructions: Hold until discussion with PCP or Cardiology Discharge Orders: Discharge Order (Routine); Ordered 07/08/23 Ordered By: Brooklynn Torres Activity on Discharge: As tolerated Stand Alone Forms: Patient Portal Discharge page Print Language: Georgian Care Plan Goals: See below Health Concerns: Fever Leukocytosis Microscopic hematuria Plan of Treatment: No source of infection was identified. Chest x-ray with no evidence of pneumonia. Urinalysis with no evidence of UTI. Respiratory pathogen panel negative Blood cultures negative at 24 hours. We will call to return to the hospital if blood cultures turn positive as discussed Call to schedule a follow-up appointment with your primary care provider Call PCP or return to the emergency department with new or worsening symptoms Assessment: See discharge summary
--- NOTE | 2023-07-08 12:59 | MHC.CM.PN ---
DP: PT HAS BEEN MEDICALLY CLEARED FOR DC HOME, NO SERVICES. PT HAS OWN RIDE HOME
[2023-07-08 16:00] VITALS: BP 133/78; PULSE 67; RESP 12; TEMP 36.4; O2SAT 96
== END 2023-07-08 17:02 | disposition home or self-care (01) ==
LOC: HO.ED 07-07 07:30 → HO.EDOVER 07-07 11:36 → HO.S3 07-07 19:48
PROVIDERS: Physician Assistant Medical; Admitting Provider Physician Assistant; Emergency Provider Internal Medicine; PCP Nurse Practitioner Family; Visit Provider Physician Assistant Medical
DX: D72.829 Elevated white blood cell count, unspecified (principal); R50.9 Fever, unspecified; R00.1 Bradycardia, unspecified; M10.9 Gout, unspecified; I12.9 Hypertensive chronic kidney disease with stage 1 through stage 4 chronic kidney disease, or unspecified chronic kidney disease; N18.30 Chronic kidney disease, stage 3 unspecified; I35.0 Nonrheumatic aortic (valve) stenosis; I48.0 Paroxysmal atrial fibrillation; Z79.01 Long term (current) use of anticoagulants; Z03.818 Encounter for observation for suspected exposure to other biological agents ruled out
CPT/HCPCS: 0241U; 36415; 71046; 80048; 80053; 81001; 81003; 83605; 83735; 84484; 85025; 85610; 85730; 87040; 87633; 93005; 96365; 99221; 99285; J0696

== ENCOUNTER → 2023-07-06 20:27 | Outpatient (BNV) | payer MEDICARE, SELFPAY | PROVIDERS: Admitting Provider Physician Assistant; Emergency Provider Internal Medicine; Visit Provider Internal Medicine | DX: R94.31 Abnormal electrocardiogram [ECG] [EKG] (principal) | CPT/HCPCS: 93010 ==

== ENCOUNTER → 2023-07-07 11:31 | Outpatient (BNV) | payer MEDICARE, SELFPAY | PROVIDERS: Admitting Provider Physician Assistant; Emergency Provider Internal Medicine; Visit Provider Physician Assistant | DX: D72.829 Elevated white blood cell count, unspecified (principal); R50.9 Fever, unspecified | CPT/HCPCS: 99223; 99239 ==

== ENCOUNTER 2024-10-12 16:17 | Inpatient (IN) | payer MEDICARE, SELFPAY ==
[2024-10-12] VITALS (8 sets, daily range): BP systolic 123–161; BP diastolic 43–72; PULSE 61–74; RESP 14–18; TEMP 36.8–37; O2SAT 95–99; BMI 61.9; BMI 28.1
--- NOTE | 2024-10-12 | ECG_ITS ---
Test Reason : REPEAT Blood Pressure : */* mmHG Vent. Rate : 59 BPM Atrial Rate : * BPM P-R Int : * ms QRS Dur : 86 ms QT Int : 438 ms P-R-T Axes : * -50 6 degrees QTcB Int : 433 ms Atrial fibrillation with slow ventricular response Left axis deviation Low voltage QRS Abnormal ECG When compared with ECG of 12-Oct-2024 16:54, No significant change was found Referred By: Mino Busch Electronically Signed By: Sandoval Almaguer
--- NOTE | 2024-10-12 | ECG_ITS ---
Test Reason : DIZZINESS Blood Pressure : */* mmHG Vent. Rate : 62 BPM Atrial Rate : * BPM P-R Int : * ms QRS Dur : 86 ms QT Int : 458 ms P-R-T Axes : * -47 6 degrees QTcB Int : 464 ms Atrial fibrillation Left axis deviation Low voltage QRS Possible Lateral infarct , age undetermined Abnormal ECG When compared with ECG of 06-Jul-2023 20:27, Atrial fibrillation Present Borderline criteria for Lateral infarct are now Present Referred By: Generic ED Physician Electronically Signed By: Sandoval Almaguer
--- NOTE | ~2024-10-12 | CT_ITS ---
CLINICAL HISTORY: Fall unknown neck strike elderly CT cervical spine without contrast Comparison: None Findings: Cervical vertebral body heights maintained. No traumatic listhesis, subluxation, or dislocation demonstrated. No acute fracture identified. Diffuse [id number] degenerative changes worst at C4-C5. No acute prevertebral or paraspinous soft tissue finding. Visualized portions of the lung apices are clear. IMPRESSION: 1. No CT evidence of acute traumatic cervical spine injury. This document has been electronically signed by: Raphael Lara MD on 10/12/2024 20:12:35
--- NOTE | ~2024-10-12 | US_ITS ---
CLINICAL HISTORY: liver cirrhosis assessment; spleen; varices US abdomen limited with color Doppler Comparison: CT/REG/SR - CT ABDOMEN PELVIS W IV CON - 10/12/24 19:01 EDT Findings: Liver is normal in size coarsened echotexture. Right lobe length 15.1 cm. No focal hepatic masses. Gallbladder is physiologically distended. No gallstones. Probable small gallbladder polyps consider six-month follow-up. No pericholecystic fluid. No sonographic Crawford sign. Spleen measures 9.9 cm. Impression: 1. No hepatosplenomegaly. 2. Coarse hepatic echotexture reflecting hepatic steatosis or diffuse hepatocellular disease. 3. Probable small gallbladder polyps consider a follow-up ultrasound in 6 months time. This document has been electronically signed by: Ramirez Mendez MD on 10/14/2024 18:43:28
--- NOTE | ~2024-10-12 | CT_ITS ---
CLINICAL HISTORY: fall , lumbar and sacral pain tender CT abdomen and pelvis with contrast Comparison: None provided Findings: No acute finding in the partially imaged lung bases. Slightly nodular contour of the liver suggestive of possible cirrhotic change. Otherwise normal liver, spleen, pancreas, bile ducts, gallbladder, and adrenal glands. Atrophic right kidney. Normal left kidney and left ureter. Urinary bladder normal. Moderately enlarged prostate. IMPRESSION: 1. No acute traumatic finding in the abdomen or pelvis. 2. Slightly nodular hepatic contour is nonspecific but may indicate an element of fibrotic change or cirrhosis. This document has been electronically signed by: Raphael Lara MD on 10/12/2024 20:20:55
--- NOTE | ~2024-10-12 | CT_ITS ---
CLINICAL HISTORY: fall , L chest wall trauma CT chest with contrast Comparison: None provided Findings: No acute fracture. No suspicious bone lesion. Superficial chest wall soft tissues are within normal limits. 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 No acute airspace opacity. No pleural effusion or pneumothorax. Heart size normal. No pericardial effusion. No acute finding in the partially visualized upper abdomen. IMPRESSION: 1. No acute traumatic finding in the chest. This document has been electronically signed by: Raphael Lara MD on 10/12/2024 20:15:27
--- NOTE | ~2024-10-12 | CT_ITS ---
CLINICAL HISTORY: fall unknown head strike CT head without contrast COMPARISON: None FINDINGS: Global cerebral volume loss and chronic microvascular ischemic changes. No acute intracranial hemorrhage, extra-axial fluid collection, mass effect, or midline shift. Ventricular system and basilar cisterns are patent. Gimenez-white matter differentiation is maintained. No gross orbital abnormality. No suspicious or acute bone lesion. Mastoid air cells and paranasal sinuses are predominantly clear. IMPRESSION: 1. No acute intracranial abnormality. 2. Global cerebral volume loss and chronic microvascular ischemic changes. This document has been electronically signed by: Raphael Lara MD on 10/12/2024 20:11:02
[2024-10-12 16:56] LABS: MANUAL DIFF FLAG NO
[2024-10-12 16:58] LABS: Hematocrit 32.2 % (42.0-52.0); Hemoglobin 11.3 g/dl (14.0-18.0); Imm Gran Abs Auto 0.02 X10*3/uL (0.00-0.03); Imm Gran Pct Auto 0.3 % (0.0-0.4); Lymphocytes Absolute Auto 1.0 X10*3/uL (1.2-4.9); Mean Corpuscular HGB Conc 35.1 g/dl (31.0-36.0); Mean Corpuscular Hemoglobin 33.4 pg (27.0-33.0); Mean Corpuscular Volume 95.3 fL (80.0-98.0); NRBC Abs Auto 0.000 X10*3/uL (0.0-0.012); NRBC Pct Auto 0.0 /100WBC (0.0-0.2); Platelet Count 224 X10*3/uL (160-400); Red Blood Count 3.38 X10*6/uL (4.60-5.80); White Blood Count 7.5 X10*3/uL (4.8-10.8)
[2024-10-12 17:20] LABS: Alanine Aminotransferase 21 U/L (0-40); Albumin Level 3.8 g/dL (3.5-5.0); Alkaline Phosphatase 93 U/L (39-117); Anion Gap 13 (12-20); Aspartate Amino Transferase 47 U/L (5-37); Blood Urea Nitrogen 15 mg/dL (9-16); Calcium 8.6 mg/dL (8.4-10.2); Carbon Dioxide 24 mmol/L (22-29); Chloride 105 mmol/L (96-108); Creatinine Clr Calc Pharmacy 54.8; Estimated Glomerular Filt Rate > 60; Magnesium 2.0 mg/dL (1.6-2.6); Potassium 3.1 mmol/L (3.3-5.1); Sodium 139 mmol/L (135-145); Total Protein 6.1 g/dL (6.5-8.0)
[2024-10-12 17:33] LABS: Troponin-I High Sensitivity 153.9 ng/L (<3.5-35.0)
--- NOTE | 2024-10-12 17:33 | ED.FALL ---
HPI - Fall General Chief Complaint: Fall Stated Complaint: fall, buttock, knee pain Time Seen by Provider: 10/12/24 16:44 History of Present Illness ED Provider: Mino Busch MD HPI Narrative: This is a 84-year-old male poor historian lives alone usually uses a walker but has mobility issues. He had a fall at about 2 or 3 in the morning he says onto his buttock only fell down 2 steps directly in the buttock with no head injury he was helped up by a neighbor and subsequently while walking in the kitchen had another fall he does not recall the details of this he denies any lightheadedness presyncope chest pain or any other symptoms surrounding that event he unfortunately was unable to get himself off the floor tells me he remained about 12 hours in the floor of the kitchen on the left side leaned up against the refrigerator. Eventually neighbors were able to hear him and family came to get him they reported that he was awake alert and leaned with the left side against the refrigerator. He mostly complains of buttock pain and low back pain Related Data Home Medications ?Medication ?Instructions ?Recorded ?Confirmed No Known Home Meds 10/12/24 10/12/24 Allergies Allergy/AdvReac Type Severity Reaction Status Date / Time codeine Allergy Unknown Unknown Verified 10/12/24 16:49 naproxen Allergy Unknown Unknown Verified 10/12/24 16:49 [facility] Past Medical History Medical History CKD (chronic kidney disease), stage III Aortic stenosis Atrial fibrillation Gout HTN (hypertension) Social History Social History Patient Tobacco Use Status: Never used Tobacco Smoked in Last 30 Days: No Use of substances other than those prescribed or required for medical reasons: No Advance Directives: No Advance Directives Information Provided: No Do you have a plan to hurt others: No Plan service: No Physical Exam Exam: Exam: Primary Survey: GCS: 15 Airway: Intact airway Breathing: Spontaneous respirations with bilateral breath sounds Circulation: Palpable bilateral carotid, brachial, femoral DP pulses with good skin color and distal perfusion. Disability: No gross paresis of the extremities or obvious focal neuro deficit. E FAST Ultrasound: NA Secondary Survey GENERAL: Well appearing. No apparent distress. Alert. HEAD: The head is atraumatic, without swelling or ecchymosis of the face or behind the ears, including the periorbital area. There is no tenderness to face, and the oral and nasal mucosa are nonbloody. Dentition is intact. The TMs are without hemotympanum. NECK: Cervical collar in place. There is no midline cervical neck tenderness or stepoffs. The patient denies any numbness, tingling, or weakness of the extremities. ?After CT/clinical clearance; Later examination after collar removal: The patient is able to range their neck completely without midline cervical pain, numbness, tingling, or weakness. EYES: Normal to inspection. Sclera non-icteric. EOMI, Pupils grossly symmetric/reactive. ENMT: External nose normal. No facial depression, gross hemotympanum, epistaxis. RESPIRATORY: Respiratory effort normal. Lungs clear to auscultation bilaterally. CARDIOVASCULAR: Regular rate. Normal rhythm. No murmur. No rubs. GI: Soft, non-tender, non-distended. No rebound or guarding. No masses palpable. No hepatosplenomegaly. No bruising. MSK: Chest Wall: Mild skin abrasions or subtle breakdown left pectoral and anterior axillary region Back: Moderate tenderness of the lower lumbar region no step-off. Otherwise No ecchymosis, no abrasions or other external signs of trauma, no midline spinal tenderness. Upper Extremities: Atraumatic, no swelling, deformity, focal tenderness, +FROM of all joints. Lower Extremities: Atraumatic, no swelling, deformity, focal tenderness, +FROM of all joints. SKIN: No jaundice. No abrasions, lacerations, or ecchymosis. See chest wall above NEUROLOGICAL: Alert. Comprehensive Neuro exam: Face symmetric, tongue midline, strong symmetric eye closure intact strong face deviation and shoulder shrug. Sensation intact to light touch throughout 5 out of 5 strength in bilateral upper extremities, 5 and 5 strength in lower extremities bilaterally? PSYCHIATRIC: Alert. Appearance appropriate for situation. Attitude cooperative. Vital Signs: Vital Signs: Last Vital Signs Temp 98.1 F 10/13/24 12:35 Pulse 78 10/13/24 12:37 Resp 16 10/13/24 12:35 BP 124/50 L 10/13/24 12:37 Pulse Ox 98 10/13/24 12:35 O2 Del Method Room Air 10/13/24 12:35 BMI result Body Mass Index 28.1 Medications Administered Generic Name Dose Route Start Last Admin Trade Name Frebob PRN Reason Stop Dose Admin Enoxaparin Sodium 40 mg 10/13/24 12:00 10/13/24 13:01 Enoxaparin Sodium 40 Mg/0.4 Ml Syringe SUBCUT 40 mg Q24H JUAN Administration Sodium Chloride 3 ml 10/13/24 00:00 10/13/24 08:24 0.9 % Sodium Chloride Flush 3 Ml Syringe IVFLUSH 3 ml QSHIFT JUAN Administration Discontinued Medications Generic Name Dose Route Start Last Admin Trade Name Michelq PRN Reason Stop Dose Admin Amlodipine Besylate 2.5 mg 10/13/24 09:00 10/13/24 08:16 Amlodipine Besylate 2.5 Mg Tablet PO 2.5 mg DAILY JUAN Administration Protocol Lactated Ringer's 1,000 mls @ 999 mls/hr 10/12/24 18:30 10/12/24 20:53 Lr IV 10/12/24 19:30 Infused .Q1H1M JUAN Infusion Sodium Chloride 1,000 mls @ 125 mls/hr 10/12/24 21:15 10/13/24 05:54 Ns IVCONT 10/13/24 05:14 Infused .Q8H JUAN Infusion Potassium Chloride 40 meq 10/12/24 17:46 10/12/24 18:00 Potassium Chloride Packet 20 Meq Packet PO 10/12/24 17:47 40 meq ONCE ONE Administration Medical Decision Making Medical Decision Making MDM Narrative: Medical Decision Makin-year-old male lives home alone to consecutive falls sound nonsyncopal but patient is a poor historian. Patient had some signs of pressure ulceration in the low back/buttock and early skin breakdown left chest wall but no internal injuries or broken bones. Head and C-spine nontraumatic. Patient does have mild rhabdomyolysis given his age frailty low back pain he is unlikely to do well at home. You also was found to be hypokalemic mild 3.1 we will start repletion. We will hydrate the patient Troponin elevation however flat without dynamic change on repeat, 150. Patient non tachycardic hypoxic no respiratory distress no clinical signs of DVT I doubt PE. Dimer added at request of hospitalist. Preliminary Favored Differential Diagnosis: Dehydration, intrathoracic or intra-abdominal injury, intra cranial injury. Fall possibly mechanical versus syncopal, electrolyte derangement, deconditioning among additional considered etiologies Testing Interpreted Independently: ?See below for details Radiology or Lab testing Results Reviewed: No traumatic injuries to the head cervical spine or chest abdomen and pelvis Consults: ?See below for details Independent Historians/External Chart Reviews: ?See below for details. Social Determinants of Health Impacting MDM/Planning: ?See below for details Consult Healthcare Provider Management of the patient was discussed with: Hospitalist Lab Data MDM Lab Attestation statement: I reviewed the patient's lab results. 10/13/24 05:49 10/13/24 08:22 Labs: Lab Results 10/12/24 10/12/24 10/12/24 Range/Units 16:51 17:14 18:23 WBC 7.5 (4.8-10.8) X10*3/uL RBC 3.38 L (4.60-5.80) X10*6/uL Hgb 11.3 L (14.0-18.0) g/dl Hct 32.2 L (42.0-52.0) % MCV 95.3 (80.0-98.0) fL MCH 33.4 H (27.0-33.0) pg MCHC 35.1 (31.0-36.0) g/dl RDW 16.0 (11.0-16.0) % Plt Count 224 (160-400) X10*3/uL MPV 10.3 (9.4-12.4) fL Immature Gran % (Auto) 0.3 (0.0-0.4) % Neut % (Auto) 71.7 (45-73) % Lymph % (Auto) 13.1 L (20-40) % [place] % (Auto) 14.5 H (2-11) % Eos % (Auto) 0.0 (0-4) % Baso % (Auto) 0.4 (0-2) % Lymph # (Auto) 1.0 L (1.2-4.9) X10*3/uL [place] # (Auto) 1.1 (0.1-1.2) X10*3/uL Eos # (Auto) 0.0 (0.0-0.4) X10*3/uL Baso # (Auto) 0.0 (0.0-0.2) X10*3/uL Abs Immat Gran (auto) 0.02 (0.00-0.03) X10*3/uL Absolute Neuts (auto) 5.4 (2.0-8.3) x10*3/uL Absolute Nucleated RBC 0.000 (0.0-0.012) X10*3/uL Nucleated RBC % (auto) 0.0 (0.0-0.2) /100WBC Sodium 139 (135-145) mmol/L Potassium 3.1 L D (3.3-5.1) mmol/L Chloride 105 (96-108) mmol/L Carbon Dioxide 24 (22-29) mmol/L Anion Gap 13 (12-20) BUN 15 (9-16) mg/dL Creatinine 1.07 (0.5-1.4) mg/dL Estim Creat Clear Calc 54.8 Estimated GFR > 60 Random Glucose 94 (60-115) mg/dL Lactic Acid 1.2 (0.5-2.0) mmol/L Calcium 8.6 D (8.4-10.2) mg/dL Magnesium 2.0 (1.6-2.6) mg/dL Total Bilirubin 1.5 H (0.0-1.0) mg/dL AST 47 H (5-37) U/L ALT 21 (0-40) U/L Alkaline Phosphatase 93 (39-117) U/L Total Creatine Kinase 793 H (38-174) U/L Troponin I High Sens 153.9 H* D 150.4 H* (<3.5-35.0) ng/L Total Protein 6.1 L (6.5-8.0) g/dL Albumin 3.8 (3.5-5.0) g/dL 25-OH Vitamin D Total 22.9 L (>30) ng/mL Discharge Plan Discharge Clinical Impression: Fever, Alcohol use disorder, Hypomagnesemia Patient Disposition: Admitted As Inpatient Interventions: Admission Worksheet (ED) Last Done: 10/13/24 04:42
[2024-10-12] MEDS: Potassium Chloride Packet 20 MEQ PACKET 40 MEQ PO (18:00)
[2024-10-12 19:02] LABS: Troponin-I High Sensitivity 150.4 ng/L (<3.5-35.0)
[2024-10-12] MEDS: Lactated Ringers 1,000 ML 999 ML IV (19:25)
--- NOTE | 2024-10-12 20:36 | P.HPHOSP_ITS ---
History of Present Illness Date of Service: 10/12/24 Attending physician on admission: Nerissa Harrington Chief Complaint: Falls, dizziness Julián Barahona is a very pleasant 84 years old man with past medical history significant for aortic stenosis, atrial fibrillation and essential hypertension was brought to the emergency department via ambulance after he had 2 falls last night. After the 2nd fall he landed on his buttock and denied head trauma; he was unable to stand up. He does complain of some mid back pain. Patient reported some dizziness but denied any events of loss of consciousness, chest pain, palpitations or shortness on breath. There are no focal weakness or speech difficulty. He denied head trauma. He denied any acute gastrointestinal or genitourinary symptoms. No toxic habits reported. In the ED, he was found to have stable vital signs. Blood workup showed no leukocytosis. Hemoglobin is 11.3 (prior was 12.14 Jun 2023) aunt platelets are normal. There is hypokalemia of 3.1 and no other electrolyte imbalances. There is no lactic acidosis. Total bilirubin is 1.4, AST 47 and ALT 21. Alk-phos is normal. Troponin is elevated 153.9 then 150.4. Abdominal pelvis CT scan with IV contrast showed no acute traumatic findings in the abdominal pelvis and nonspecific elements of fibrosis in the liver or cirrhosis. Head CT scan showed no acute intracranial abnormality. C-spine CT scan showed no evidence of acute traumatic cervical spine injury. Chest CT scan with IV contrast showed no acute traumatic findings in the chest. ECG showed atrial fibrillation, heart rate 62 bpm and no ischemic changes. ED tx: Klor-Con 40 mEq p.o., ringer lactate 1 L bolus Review of Systems 2 Review of Systems: All 12 systems were reviewed and normal except as noted in HPI. [facility] Medical History (Updated 10/13/24 @ 05:02 by Nerissa Harrington MD) CKD (chronic kidney disease), stage III Aortic stenosis Atrial fibrillation Gout HTN (hypertension) Social History Patient Tobacco Use Status: Never used Tobacco Smoked in Last 30 Days: No Use of substances other than those prescribed or required for medical reasons: No Advance Directives: No Advance Directives Information Provided: No Do you have a plan to hurt others: No Plan Meds Allergies Allergy/AdvReac Type Severity Reaction Status Date / Time codeine Allergy Unknown Unknown Verified 10/12/24 16:49 naproxen Allergy Unknown Unknown Verified 10/12/24 16:49 Active Medications: Current Medications Acetaminophen (Acetaminophen 325 Mg Tablet) 975 mg PO Q6H PRN PRN Reason: Pain, Mild 1-3,fever,headache Calcium Carbonate (Calcium Carbonate 750 Mg Tab.Chew) 750 mg PO Q4H PRN PRN Reason: Heartburn Magnesium Hydroxide (Milk Of Magnesia 30 Ml Oral.Susp) 30 ml PO DAILY PRN PRN Reason: Constipation Melatonin (Melatonin 3 Mg Tablet) 6 mg PO BEDTIME PRN PRN Reason: Insomnia Sodium Chloride (0.9 % Sodium Chloride Flush 3 Ml Syringe) 3 ml IVFLUSH QSHIFT COUNT INCLUDES THE [facility] Home Medications ?Medication ?Instructions ?Recorded ?Confirmed ?Last Taken ?Type No Known Home Meds 10/12/24 10/12/24 Un known History Physical Exam 2 Vital Signs and Narrative: Vital Signs: Last Vital Signs Temp 98.3 F 10/12/24 18:09 Pulse 74 10/12/24 20:24 Resp 15 10/12/24 20:24 BP 141/63 H 10/12/24 20:24 Pulse Ox 95 10/12/24 20:24 O2 Del Method Room Air 10/12/24 20:24 BMI result Body Mass Index 28.1 Constitutional - Awake and Alert, No apparent distress HEENT - PERRLA, EOMI Heart - Distant heart sounds, irregular rhythm, normal rate. Lungs - Normal lung expansion, Normal respiratory effort, No respiratory distress, CTA bilaterally Abdomen - NT / ND; +BS; No rebound or guarding Extremities - no calf tenderness bilaterally, no swelling Musculoskeletal - Normal inspection, normal ROM Skin - Warm/Dry Neurological - Alert & oriented x3. Moving all extremities spontaneously. Normal speech. Psychological - Appropriate affect Results Labs 10/12/24 16:51 10/12/24 16:51 Labs: Laboratory Results - last 24 hr 10/12/24 10/12/24 16:51 17:14 MCV 95.3 MCH 33.4 H MCHC 35.1 RDW 16.0 Plt Count 224 MPV 10.3 Immature Gran % (Auto) 0.3 Neut % (Auto) 71.7 Lymph % (Auto) 13.1 L Henry % (Auto) 14.5 H Eos % (Auto) 0.0 Baso % (Auto) 0.4 Lymph # (Auto) 1.0 L Henry # (Auto) 1.1 Eos # (Auto) 0.0 Baso # (Auto) 0.0 Abs Immat Gran (auto) 0.02 Absolute Neuts (auto) 5.4 Absolute Nucleated RBC 0.000 Nucleated RBC % (auto) 0.0 Anion Gap 13 Estim Creat Clear Calc 54.8 Estimated GFR > 60 Random Glucose 94 Lactic Acid 1.2 Calcium 8.6 D Magnesium 2.0 Total Bilirubin 1.5 H AST 47 H ALT 21 Alkaline Phosphatase 93 Total Creatine Kinase 793 H Total Protein 6.1 L Albumin 3.8 Assessment and Plan (1) Hypomagnesemia: Status: Acute (2) Multiple falls: Status: Acute Plan Julián Barahona is a 84 y/o man presents with: Multiple falls (X2) associated with dizziness + elevated troponin. Hx of and a-fib. No chest pain, LOC, palpitations or SOB. Continuous cardiac monitoring. Recheck troponin. Obtain TTE and cardiology consult. Check vitamin-D level. Fall precautions. Physiotherapy. Persistent atrial fibrillation, currently rate contolled. Not longer taking Eliquis because his clinical account specialist told him he should not be on it. Unable to see prior evaluation by cardiology or TTE on our system. Check TTE. Mild rhabdomyolysis. Continue IV fluids. Recheck total CK. Essential hypertension. Used to take lisinopril. Start amlodipine 2.5 mg p.o. daily. Chronic anemia. Continue to monitor. Code status: Full DVT prophylaxis: Eliquis Patient will need hospitalization for at least 2 midnights for elevated troponins and mild rhabdomyolysis in the settings of dizziness leading to falls; patient will need IV hydration and further evaluation by Cardiology Service. Quality Stroke Does the patient have a stroke diagnosis?: No VTE Prior VTE?: No VTE Risk Level:: Medical - moderate - high VTE Device Contraindication: Treatment Not Indicated VTE Drug Contraindication: N/A - Med Ordered
--- NOTE | 2024-10-12 20:51 | PHA.MEDREC ---
Addendum entered by Joselito Ferraro PharmD 10/12/24 20:53: reviewed Original Note: Pharmacy Consult ? Medication Reconciliation Pharmacy has completed the medication reconciliation. Patient states he is not on any medications. Patient has been off Eliquis Since last AUGUST 2023
[2024-10-12 20:57] LABS: D Dimer High Sensitivity 424 NG/ML
[2024-10-12 21:42] LABS: Appearance Urine Clear; Glucose Urine UA Negative (Negative); PH 6.5 (5.0-9.0); Specific Gravity - Urine >= 1.030 (1.005-1.025); UMIC TRIGGER UACC YES
[2024-10-13] VITALS (8 sets, daily range): BP systolic 116–140; BP diastolic 50–79; PULSE 60–92; RESP 10–17; TEMP 36.7–37.1; O2SAT 96–100; BMI 27.9
[2024-10-13 01:34] LABS: Troponin-I High Sensitivity 132.9 ng/L (<3.5-35.0)
[2024-10-13 06:18] LABS: MANUAL DIFF FLAG NO
[2024-10-13 06:22] LABS: Hematocrit 33.1 % (42.0-52.0); Hemoglobin 11.1 g/dl (14.0-18.0); Imm Gran Abs Auto 0.02 X10*3/uL (0.00-0.03); Imm Gran Pct Auto 0.3 % (0.0-0.4); Lymphocytes Absolute Auto 1.9 X10*3/uL (1.2-4.9); Mean Corpuscular HGB Conc 33.5 g/dl (31.0-36.0); Mean Corpuscular Hemoglobin 32.8 pg (27.0-33.0); Mean Corpuscular Volume 97.9 fL (80.0-98.0); NRBC Abs Auto 0.000 X10*3/uL (0.0-0.012); NRBC Pct Auto 0.0 /100WBC (0.0-0.2); Platelet Count 214 X10*3/uL (160-400); Red Blood Count 3.38 X10*6/uL (4.60-5.80); White Blood Count 6.4 X10*3/uL (4.8-10.8)
--- NOTE | 2024-10-13 07:00 | CA_ITS ---
Transthoracic Echocardiogram Patient (Last, First, Middle): Julián Barahona W Gender: M Date of : 1940 Age: 84 Procedure Date: 10/13/2024 Procedure Type: Transthoracic Echocardiogram Location: ER Height: 175.26 cm Weight: 86.18 kg BSA: 2.02 m2 Heart Rate: bpm BP: 116 / 57 mmHg Securities Clerk: Referring MD: Nerissa Harrington MD Symptoms: , elevated troponin, multiple falls, dizziness Study Quality: Fair ECG Rhythm: Sinus Conclusions: - Normal left ventricular size and systolic function. There is severely increased left ventricular wall thickness. The visually estimated ejection fraction is between 65-70%. - Mildly increased right ventricular cavity size. There is normal right ventricular systolic function. - The left atrium is severely dilated. The right atrium is moderately dilated. - There is mild to moderate aortic valve stenosis. Findings Left Ventricle Normal left ventricular size and systolic function. There is severely increased left ventricular wall thickness. The visually estimated ejection fraction is between 65-70%. There is no evidence of regional wall motion abnormalities. Diastolic function is indeterminate on the basis of available data. Right Ventricle Mildly increased right ventricular cavity size. There is normal right ventricular systolic function. Atria The left atrium is severely dilated. The right atrium is moderately dilated. Aortic Valve There is moderate calcification of the aortic valve. There is mild to moderate aortic valve stenosis. The peak aortic velocity is 3.03 m/s. The mean gradient is 19 mmHg. The aortic valve area is 1.68 cm2. There is no aortic valve regurgitation. Mitral Valve The mitral valve appears normal. There is trace mitral valve regurgitation. There is no mitral valve stenosis. Pulmonic Valve The pulmonic valve is normal. There is no pulmonic valve regurgitation. Tricuspid Valve Normal tricuspid valve structure. There is trace tricuspid valve regurgitation. Mildly elevated right atrial pressure. There is no evidence of pulmonary hypertension. Great Vessels All visible segments of the aorta are normal in size. The visualized portions of the pulmonary artery and branches are normal. Venous The inferior vena cava is dilated and collapses greater than 50% with inspiration. Pericardium/Pleural There is no evidence of pericardial effusion. Prior Study Comparison No prior study available for comparison. Measurements 2D Linear Measurements IVSd: 1.61 0.6-0.9/0.6-1.0 cm LVIDd: 3.99 3.9-5.3/4.2-5.9 cm LVIDd Index: 1.98 2.4-3.2/2.2-3.1 cm/m2 LVIDs: 2.83 2.0-3.6 cm LVPWd: 1.62 0.7-1.1 cm Ao Root: 3.50 2.1-3.5 cm LA Diam: 4.50 2.7-3.8/3.0-4.0 cm LAIDs Index: 2.23 1.5-2.3 cm/m2 LV Mass: 325.36 67-162/88-224 g LV Mass Index: 161.07 43-95/49-115 g/m2 LVOT Diam: 2.40 3.0+(-)1.3 cm 2D Systolic Function EF 4C: 59.40 >55% EF 2C: 62.50 >55% EF BiP: 60.70 >55% Mitral Valve MV Pk E: 1.00 MV Decel Time: 187.00 E'Lateral: 8.27 E'Medial: 5.98 E/E' Med: 16.70 E/E' Lat: 12.10 PHT: 55.00 MVA PHT: 4.00 Decel [place]: 5.38 Aortic Valve AoV Pk Malvin: 3.03 AoV Mn Malvin: 2.02 AoV VTI: 0.69 AoV Pk Grad: 37.00 Aov Mn Grad: 19.00 MARGARET Cont.VTI: 1.68 LVOT LVOT Pk Malvin: 1.06 LVOT Mn Malvin: 0.72 LVOT VTI: 0.26 LVOT Pk Grad: 4.00 LVOT Mn Grad: 2.00 LVOT Diam: 2.40 LVOT Area: 4.52 Diastolic Function MV Pk E: 1.00 E'Medial: 5.98 E/E' Med: 16.70 E' Laterial: 8.27 E/E' Lat: 12.10 Right Ventricle TAPSE (mm): 17.00 TVS' Malvin: 12.00 Tricuspid Valve TR Pk Malvin: 2.55 TR Pk Grad: 26.00 RA Press: 3.00 RVSP: 29.00 Great Vessels Aorta Ao Root-2D: 3.50 2.0-3.7 cm Ao Asc: 3.20 2.1-3.4 cm Pulmonary Valve PV Pk Malvin: 0.96 Peak PV Grad: 4.00 Updated in Other Vendor System with Status of Final Sandoval Almaguer MD electronically signed on 10/13/2024 6:47:52 PM with status of Final
--- NOTE | 2024-10-13 07:07 | PC.NURSE ---
This RN assumed care of patient @ 0700 Patient currently sleeping in bed, no signs of distress Patient on air sampling and monitoring sinus doyle 56 BPM IV 20G left forearm Patient awaiting bed assignment
--- NOTE | 2024-10-13 08:00 | MHC.EDTECH ---
patient was incontinent of urine patient accidentally spilled the urinal on himself. this master automotive technician wash patient up changed his bedding and put a clean hospital gown. nurse aware
[2024-10-13] MEDS: 0.9 % Sodium Chloride Flush 3 ML SYRINGE IVFLUSH ×2 (08:24→17:29)
[2024-10-13 08:45] LABS: Anion Gap 11 (12-20); Blood Urea Nitrogen 14 mg/dL (9-16); Calcium 8.6 mg/dL (8.4-10.2); Carbon Dioxide 22 mmol/L (22-29); Chloride 109 mmol/L (96-108); Creatinine Clr Calc Pharmacy 55.4; Estimated Glomerular Filt Rate > 60; Magnesium 2.1 mg/dL (1.6-2.6); Potassium 3.5 mmol/L (3.3-5.1); Sodium 138 mmol/L (135-145)
[2024-10-13 10:55] LABS: Hemoglobin A1C 96.3056 umol/L; Total Hemoglobin (HGBA1C) 2940.8311 umol/L
--- NOTE | 2024-10-13 11:25 | PC.NURSE ---
Family provided patients smt operator information Roderick Lea [phone]
--- NOTE | 2024-10-13 11:43 | P.PNIM_ITS ---
Subjective Subjective Date of Service: 10/13/24 Interval History: no dizziness, no chest pain Review of Systems Review of Systems: Yes all other systems are reviewed and are negative Physical Exam 2 Vital Signs: Vital Signs: Last Vital Signs Temp 98.3 F 10/13/24 09:14 Pulse 92 10/13/24 09:14 Resp 10 L 10/13/24 09:14 BP 133/63 10/13/24 09:14 Pulse Ox 100 10/13/24 09:14 O2 Del Method Room Air 10/13/24 09:14 BMI result Body Mass Index 28.1 Gen: in no acute distress HEENT: sclera anicteric, moist mucus membranes Neck: supple Lungs: clear to auscultation bilaterally Heart: irregular, systolic murmur at base Abd: soft, non-tender, non-distended Ext: no edema Skin: warm/well-perfused Neuro: alert and oriented x3, no focal findings Psych: appropriate affect Objective Data Active Medications Acetaminophen (Acetaminophen 325 Mg Tablet) 975 mg PO Q6H PRN PRN Reason: Pain, Mild 1-3,fever,headache Calcium Carbonate (Calcium Carbonate 750 Mg Tab.Chew) 750 mg PO Q4H PRN PRN Reason: Heartburn Magnesium Hydroxide (Milk Of Magnesia 30 Ml Oral.Susp) 30 ml PO DAILY PRN PRN Reason: Constipation Melatonin (Melatonin 3 Mg Tablet) 6 mg PO BEDTIME PRN PRN Reason: Insomnia Sodium Chloride (0.9 % Sodium Chloride Flush 3 Ml Syringe) 3 ml IVFLUSH QSHIFT [facility] Last Admin: 10/13/24 08:24 Dose: 3 ml Documented By: NGA Labs 10/13/24 05:49 10/13/24 08:22 Labs: Laboratory Results - last 24 hr 10/12/24 10/12/24 10/12/24 16:51 17:14 20:20 MCV 95.3 MCH 33.4 H MCHC 35.1 RDW 16.0 Plt Count 224 MPV 10.3 Immature Gran % (Auto) 0.3 Neut % (Auto) 71.7 Lymph % (Auto) 13.1 L [place] % (Auto) 14.5 H Eos % (Auto) 0.0 Baso % (Auto) 0.4 Lymph # (Auto) 1.0 L [place] # (Auto) 1.1 Eos # (Auto) 0.0 Baso # (Auto) 0.0 Abs Immat Gran (auto) 0.02 Absolute Neuts (auto) 5.4 Absolute Nucleated RBC 0.000 Nucleated RBC % (auto) 0.0 D-Dimer High Sensitivty 424 Anion Gap 13 Estim Creat Clear Calc 54.8 Estimated GFR > 60 Random Glucose 94 Estimat Average Glucose Hemoglobin A1c % Lactic Acid 1.2 Calcium 8.6 D Magnesium 2.0 Total Bilirubin 1.5 H AST 47 H ALT 21 Alkaline Phosphatase 93 Total Creatine Kinase 793 H Total Protein 6.1 L Albumin 3.8 25-OH Vitamin D Total 22.9 L Urine Color Urine Appearance Urine pH Ur Specific [place] Urine Protein Urine Glucose (UA) Urine Ketones Urine Blood Urine Nitrite Ur Leukocyte Esterase Urine RBC Urine WBC Ur Squamous Epith Cells Urine Bacteria Hyaline Casts 10/12/24 10/13/24 10/13/24 21:18 05:49 08:22 MCV 97.9 MCH 32.8 MCHC 33.5 RDW 16.5 H Plt Count 214 MPV 11.8 Immature Gran % (Auto) 0.3 Neut % (Auto) 52.5 Lymph % (Auto) 30.2 [place] % (Auto) 15.7 H Eos % (Auto) 0.8 Baso % (Auto) 0.5 Lymph # (Auto) 1.9 [place] # (Auto) 1.0 Eos # (Auto) 0.1 Baso # (Auto) 0.0 Abs Immat Gran (auto) 0.02 Absolute Neuts (auto) 3.4 Absolute Nucleated RBC 0.000 Nucleated RBC % (auto) 0.0 D-Dimer High Sensitivty Anion Gap 11 L Estim Creat Clear Calc 55.4 Estimated GFR > 60 Random Glucose 94 Estimat Average Glucose 100 Hemoglobin A1c % 5.1 Lactic Acid Calcium 8.6 Magnesium 2.1 Total Bilirubin AST ALT Alkaline Phosphatase Total Creatine Kinase 494 H Total Protein Albumin 25-OH Vitamin D Total Urine Color Yellow Urine Appearance Clear Urine pH 6.5 Ur Specific [place] >= 1.030 H Urine Protein 30 (1+) H Urine Glucose (UA) Negative Urine Ketones Negative Urine Blood Negative Urine Nitrite Negative Ur Leukocyte Esterase Negative Urine RBC 0-2 Urine WBC 0-5 Ur Squamous Epith Cells 0-2 Urine Bacteria None Seen Hyaline Casts 0-2 Assessment and Plan (1) Multiple falls: Status: Acute Assessment and Plan: d2, 84yo with persistent AF, aortic stenosis, HTN not currently on any medications presenting after multiple falls, found to have elevated but flat troponin, elevated CPK falls - TTE pending, follow telemetry, check orthostatics, Cardiology consult mild rhabdomyolysis - resolving, d/c IV fluids elev/flat troponins - suspect cross-reactivity with skleletal muscle but Cardiology consult pending ?cirrhosis - US abd; denies EtOH hypoK - repleted normocytic anemia - check FOBT, retic/LDH, B12/FA, iron studies HTN - no antihypertensives for now persistent AF - rate-controlled without meds; not on AC- discuss with pt and Cardiology VTE ppx - enoxaparin dispo - home with VNA per PT In my clinical judgment, the patient requires continued inpatient hospitalization for the following reasons: cardiac workup Quality Stroke Does the patient have a stroke diagnosis?: No VTE Prior VTE?: No VTE Risk Level:: Medical - moderate - high VTE Device Contraindication: Treatment Not Indicated VTE Drug Contraindication: N/A - Med Ordered
--- NOTE | 2024-10-13 11:47 | MHC.CM.PN ---
CM met with Patient and several family members, at bedside, in the ED and addressed IMM with them (original was given to Patient and a copy will be placed on the chart). Patient lives alone in a house and he has a walker to assist with mobility. Patient may benefit from a PT Eval to assist with disposition; CM has initiated and will follow for dc planning. PCP/NEUROPSYCHIATRIST is Cassandra Limon and Granddaughter/Lena is the HCP. Patient's Son-in-Law will transport to home at dc.
[2024-10-13 12:18] LABS: Iron 24 mcg/dL (45-160); Percent Iron Saturation 13 % (15-50); Total Iron Binding Capacity 179 mcg/dL (228-428); Unsaturated Iron Binding 155 ug/dL
[2024-10-13 12:31] LABS: Ferritin 644 ng/mL (20-250)
[2024-10-13 12:44] LABS: Reticulocytes Absolute 0.033 X10*6/uL (0.026-0.095)
--- NOTE | 2024-10-13 12:59 | PC.NURSE ---
Tech reported patient became wheezy when laying flat for ortho vitals. Respiratory notified Patient O2 99% RA denies SOB/WOB Lung sounds clear bilaterally
--- NOTE | 2024-10-13 18:48 | P.CONCA_ITS ---
History of Present Illness History of Present Illness Date of Service: 10/13/24 Chief complaint: Rhabdomyolysis,elevated troponin Narrative: 84-year-old gentleman with history of atrial fibrillation and dizziness presenting for multiple falls recently. He apparently had a fall down the stairs yesterday which he thinks was due to tripping and was mechanical fall. He said his neighbor helped him to get into a chair and somehow he has slipped out of it and fell to the ground. The exact details are quite unclear. He said he tried to get up but could not get up and was on the floor for approximately 12 hours when someone found him and eventually brought him to the emergency department. He was found to have mild rhabdomyolysis and mildly elevated troponin. He often on gets dizziness which is describing as a vertigo like feeling. He is not describing lightheadedness or syncope. He has aortic stenosis murmur by examination. He has known atrial fibrillation and was previously on Eliquis but apparently had nosebleed and he stopped using the Eliquis. No recent GI bleeding. [facility] Past Medical History Medical History (Updated 10/13/24 @ 18:51 by Sandoval Almaguer MD) CKD (chronic kidney disease), stage III Aortic stenosis Atrial fibrillation Gout HTN (hypertension) Social History Social History Patient Tobacco Use Status: Never used Tobacco Smoked in Last 30 Days: No Use of substances other than those prescribed or required for medical reasons: No Advance Directives: No Advance Directives Information Provided: No Do you have a plan to hurt others: No Plan service: No Meds Allergies Allergy/AdvReac Type Severity Reaction Status Date / Time codeine Allergy Unknown Unknown Verified 10/12/24 16:49 naproxen Allergy Unknown Unknown Verified 10/12/24 16:49 Active Medications: Current Medications Acetaminophen (Acetaminophen 325 Mg Tablet) 975 mg PO Q6H PRN PRN Reason: Pain, Mild 1-3,fever,headache Calcium Carbonate (Calcium Carbonate 750 Mg Tab.Chew) 750 mg PO Q4H PRN PRN Reason: Heartburn Enoxaparin Sodium (Enoxaparin Sodium 40 Mg/0.4 Ml Syringe) 40 mg SUBCUT Q24H JUAN Last Admin: 10/13/24 13:01 Dose: 40 mg Magnesium Hydroxide (Milk Of Magnesia 30 Ml Oral.Susp) 30 ml PO DAILY PRN PRN Reason: Constipation Melatonin (Melatonin 3 Mg Tablet) 6 mg PO BEDTIME PRN PRN Reason: Insomnia Sodium Chloride (0.9 % Sodium Chloride Flush 3 Ml Syringe) 3 ml IVFLUSH QSHIFT JUAN Last Admin: 10/13/24 17:29 Dose: 3 ml Home Medications ?Medication ?Instructions ?Recorded ?Confirmed ?Last Taken ?Type No Known Home Meds 10/12/24 10/12/24 Un known History Physical Exam 2 Vital Signs: Vital Signs: Last Vital Signs Temp 98.1 F 10/13/24 12:35 Pulse 78 10/13/24 12:37 Resp 16 10/13/24 12:35 BP 124/50 L 10/13/24 12:37 Pulse Ox 98 10/13/24 12:35 O2 Del Method Room Air 10/13/24 12:35 BMI result Body Mass Index 28.1 GENERAL APPEARANCE: in no acute distress, pleasant. NECK: no carotid bruit, no jugular venous distention. SKIN: no suspicious lesions, warm and dry. HEART: Systolic murmur aortic area with preserved 2nd heart sound, irregular rate and rhythm. LUNGS: clear to auscultation bilaterally. ABDOMEN: soft, nontender. EXTREMITIES: no edema. PERIPHERAL PULSES: equal. NEUROLOGIC: No gross deficits, AAO X 3 Objective Labs and Meds 10/13/24 05:49 10/13/24 08:22 Lab results: Laboratory Results - last 24 hr 10/12/24 10/12/24 10/12/24 16:51 18:23 20:20 WBC RBC Hgb Hct MCV MCH MCHC RDW Plt Count MPV Immature Gran % (Auto) Neut % (Auto) Lymph % (Auto) [place] % (Auto) Eos % (Auto) Baso % (Auto) Lymph # (Auto) [place] # (Auto) Eos # (Auto) Baso # (Auto) Abs Immat Gran (auto) Absolute Neuts (auto) Absolute Nucleated RBC Nucleated RBC % (auto) Absolute Retic Percent Retic Immature Retic Fraction Retic Hgb Equivalent D-Dimer High Sensitivty 424 Sodium Potassium Chloride Carbon Dioxide Anion Gap BUN Creatinine Estim Creat Clear Calc Estimated GFR Random Glucose Estimat Average Glucose Hemoglobin A1c % Calcium Magnesium Iron TIBC % Saturation Unsat Iron Binding Ferritin Lactate Dehydrogenase Total Creatine Kinase Troponin I High Sens 150.4 H* 25-OH Vitamin D Total 22.9 L Urine Color Urine Appearance Urine pH Ur Specific [place] Urine Protein Urine Glucose (UA) Urine Ketones Urine Blood Urine Nitrite Ur Leukocyte Esterase Urine RBC Urine WBC Ur Squamous Epith Cells Urine Bacteria Hyaline Casts 10/12/24 10/13/24 10/13/24 21:18 01:02 05:49 WBC 6.4 RBC 3.38 L Hgb 11.1 L Hct 33.1 L MCV 97.9 MCH 32.8 MCHC 33.5 RDW 16.5 H Plt Count 214 MPV 11.8 Immature Gran % (Auto) 0.3 Neut % (Auto) 52.5 Lymph % (Auto) 30.2 [place] % (Auto) 15.7 H Eos % (Auto) 0.8 Baso % (Auto) 0.5 Lymph # (Auto) 1.9 [place] # (Auto) 1.0 Eos # (Auto) 0.1 Baso # (Auto) 0.0 Abs Immat Gran (auto) 0.02 Absolute Neuts (auto) 3.4 Absolute Nucleated RBC 0.000 Nucleated RBC % (auto) 0.0 Absolute Retic 0.033 Percent Retic 1.0 Immature Retic Fraction 7.2 Retic Hgb Equivalent 37.2 H D-Dimer High Sensitivty Sodium Potassium Chloride Carbon Dioxide Anion Gap BUN Creatinine Estim Creat Clear Calc Estimated GFR Random Glucose Estimat Average Glucose Hemoglobin A1c % Calcium Magnesium Iron TIBC % Saturation Unsat Iron Binding Ferritin Lactate Dehydrogenase Total Creatine Kinase Troponin I High Sens 132.9 H* 25-OH Vitamin D Total Urine Color Yellow Urine Appearance Clear Urine pH 6.5 Ur Specific [place] >= 1.030 H Urine Protein 30 (1+) H Urine Glucose (UA) Negative Urine Ketones Negative Urine Blood Negative Urine Nitrite Negative Ur Leukocyte Esterase Negative Urine RBC 0-2 Urine WBC 0-5 Ur Squamous Epith Cells 0-2 Urine Bacteria None Seen Hyaline Casts 0-2 10/13/24 08:22 WBC RBC Hgb Hct MCV MCH MCHC RDW Plt Count MPV Immature Gran % (Auto) Neut % (Auto) Lymph % (Auto) [place] % (Auto) Eos % (Auto) Baso % (Auto) Lymph # (Auto) [place] # (Auto) Eos # (Auto) Baso # (Auto) Abs Immat Gran (auto) Absolute Neuts (auto) Absolute Nucleated RBC Nucleated RBC % (auto) Absolute Retic Percent Retic Immature Retic Fraction Retic Hgb Equivalent D-Dimer High Sensitivty Sodium 138 Potassium 3.5 Chloride 109 H Carbon Dioxide 22 Anion Gap 11 L BUN 14 Creatinine 1.06 Estim Creat Clear Calc 55.4 Estimated GFR > 60 Random Glucose 94 Estimat Average Glucose 100 Hemoglobin A1c % 5.1 Calcium 8.6 Magnesium 2.1 Iron 24 L TIBC 179 L % Saturation 13 L Unsat Iron Binding 155 Ferritin 644 H Lactate Dehydrogenase 233 Total Creatine Kinase 494 H Troponin I High Sens 25-OH Vitamin D Total Urine Color Urine Appearance Urine pH Ur Specific [place] Urine Protein Urine Glucose (UA) Urine Ketones Urine Blood Urine Nitrite Ur Leukocyte Esterase Urine RBC Urine WBC Ur Squamous Epith Cells Urine Bacteria Hyaline Casts Assessment and Plan (1) Multiple falls: Status: Acute (2) Aortic stenosis: Status: Acute (3) Atrial fibrillation: Status: Acute Plan Pleasant 84 year gentleman who is here for falls. He had a mechanical fall followed by a 2nd fall out of a chair to the ground when he could not get up for approximately 12 hours. He has a mild rhabdo. He has chronic atrial fibrillation. Heart rates are reasonably controlled currently. Check orthostatic vital signs. Echocardiography reviewed which is showing normal LV function with [id number] aortic valve stenosis. If orthostatics are negative and he has no dizziness with ambulation and clinically improves then we would consider starting him on anticoagulation. He is somewhat open to the idea of anticoagulation. Thank you for allowing me to participate in the care of your patient. Please feel free to contact me if you have any questions. Procedures Date of Service Date of Service: 10/13/24
[2024-10-14] VITALS (8 sets, daily range): BP systolic 117–145; BP diastolic 59–87; PULSE 54–82; RESP 16–19; TEMP 36.7–37; O2SAT 96–97
[2024-10-14] MEDS: 0.9 % Sodium Chloride Flush 3 ML SYRINGE IVFLUSH ×2 (04:36→10:10)
[2024-10-14 06:11] LABS: Hematocrit 31.1 % (42.0-52.0); Hemoglobin 11.1 g/dl (14.0-18.0); Mean Corpuscular HGB Conc 35.7 g/dl (31.0-36.0); Mean Corpuscular Hemoglobin 34.3 pg (27.0-33.0); Mean Corpuscular Volume 96.0 fL (80.0-98.0); NRBC Abs Auto 0.000 X10*3/uL (0.0-0.012); NRBC Pct Auto 0.0 /100WBC (0.0-0.2); Platelet Count 214 X10*3/uL (160-400); Red Blood Count 3.24 X10*6/uL (4.60-5.80); White Blood Count 5.8 X10*3/uL (4.8-10.8)
[2024-10-14 06:59] LABS: Folate 5.3 ng/mL (> or = 4.0); Vitamin B12 229 pg/mL (200-900)
--- NOTE | 2024-10-14 11:54 | PM.PNCARD ---
Subjective Subjective Date of Service: 10/14/24 Interval history: Seen examined at bedside. Feeling fine and has been ambulating without any problems. ECHO has shown [id number] aortic valve stenosis. Physical Exam Vital Signs: Last Vital Signs Temp 98.3 F 10/14/24 07:54 Pulse 70 10/14/24 08:16 Resp 19 10/14/24 07:54 BP 145/74 H 10/14/24 08:16 Pulse Ox 96 10/14/24 07:54 O2 Del Method Room Air 10/14/24 07:54 BMI result Body Mass Index 27.9 GENERAL APPEARANCE: in no acute distress, pleasant. NECK: no carotid bruit, no jugular venous distention. SKIN: no suspicious lesions, warm and dry. HEART: Systolic murmur aortic area with preserved 2nd heart sound, irregular rate and rhythm. LUNGS: clear to auscultation bilaterally. ABDOMEN: soft, nontender. EXTREMITIES: no edema. PERIPHERAL PULSES: equal. NEUROLOGIC: No gross deficits, AAO X 3 Objective Labs and Meds 10/14/24 05:46 10/13/24 08:22 Lab results: Laboratory Results - last 24 hr 10/13/24 10/13/24 10/14/24 05:49 08:22 05:46 WBC 5.8 RBC 3.24 L Hgb 11.1 L Hct 31.1 L MCV 96.0 MCH 34.3 H MCHC 35.7 RDW 16.1 H Plt Count 214 MPV 11.1 Absolute Nucleated RBC 0.000 Nucleated RBC % (auto) 0.0 Absolute Retic 0.033 Percent Retic 1.0 Immature Retic Fraction 7.2 Retic Hgb Equivalent 37.2 H Iron 24 L TIBC 179 L % Saturation 13 L Unsat Iron Binding 155 Ferritin 644 H Lactate Dehydrogenase 233 Total Creatine Kinase 244 H Vitamin B12 229 Folate 5.3 Progress Note: A&P Assessment and plan (1) Aortic stenosis: Status: Acute (2) Atrial fibrillation: Status: Acute Plan [age] year gentleman presenting with falls. Etiology is unclear but he is adamant that this is because he tripped and is denying syncope. Echocardiography is showing [id number] aortic valve stenosis. He has persistent atrial fibrillation. His heart rate is well controlled without any medications. We discussed once again about anticoagulation and I have explained to him that anticoagulation is for prevention of stroke. 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 Thank you for allowing me to participate in the care of your patient. Please feel free to contact me if you have any questions. Time Spent With Patient Time: Total time managing care of this patient today ____ minutes. Progress Note: Quality Stroke Does the patient have a stroke diagnosis?: No Procedures Date of Service Date of Service: 10/14/24
--- NOTE | 2024-10-14 12:27 | P.F2F_ITS ---
Service Date Service Date: 10/14/24 Encounter Date of encounter: 10/14/24 Reasons for Services Signs and symptoms assessed: attach PT evaluation 10/13/24 Reason for physical therapy: home safety and mobility, therapeutic exercises, gait/transfer training, assess need for DME, ADL training and energy conservation Overseeing Care: Cassandra Limon Homebound: Leaving the home is medically contraindicated at this time without the asist of a device and/or another person due th the listed conditions above and below. Reason homebound: unsteady gait / fall risk Certification: Based on the above findings, I certify that this patient is confined to the home and needs intermittent care home care, physical therapy and/or speech therapy, or continues to need occupational therapy. The patient is under my care, and I have initiated the establishment of the plan of care. The patient will be followed by a physician who will periodically review the plan of care. Time Spent With Patient Time: Total time managing care of this patient today ____ minutes.
--- NOTE | 2024-10-14 12:28 | PM.DS ---
DS: Providers Provider Date of Service: 10/14/24 Date of admission: 10/12/24 19:26 Date of discharge: 10/14/24 Primary care physician: Cassandra Limon NP Consults: 10/12/24 20:07 Consult to Cardiology Routine Consulting Provider: [facility] Reason for consultation: hx of , elevated troponin, DS: Diagnosis Discharge Diagnosis (1) Aortic stenosis: Status: Acute (2) Atrial fibrillation: Status: Acute (3) Multiple falls: Status: Acute DS: Summary Hospital Course Hospital Course: From the history and physical by the admitting hospitalist, Nerissa Harrington, 10/12/24: Julián Barahona is a very pleasant 84 years old man with past medical history significant for aortic stenosis, atrial fibrillation and essential hypertension was brought to the emergency department via ambulance after he had 2 falls last night. After the 2nd fall he landed on his buttock and denied head trauma; he was unable to stand up. He does complain of some mid back pain. Patient reported some dizziness but denied any events of loss of consciousness, chest pain, palpitations or shortness on breath. There are no focal weakness or speech difficulty. He denied head trauma. He denied any acute gastrointestinal or genitourinary symptoms. No toxic habits reported. In the ED, he was found to have stable vital signs. Blood workup showed no leukocytosis. Hemoglobin is 11.3 (prior was 12.14 Jun 2023) aunt platelets are normal. There is hypokalemia of 3.1 and no other electrolyte imbalances. There is no lactic acidosis. Total bilirubin is 1.4, AST 47 and ALT 21. Alk-phos is normal. Troponin is elevated 153.9 then [address].4. Abdominal pelvis CT scan with IV contrast showed no acute traumatic findings in the abdominal pelvis and nonspecific elements of fibrosis in the liver or cirrhosis. Head CT scan showed no acute intracranial abnormality. C-spine CT scan showed no evidence of acute traumatic cervical spine injury. Chest CT scan with IV contrast showed no acute traumatic findings in the chest. ECG showed atrial fibrillation, heart rate 62 bpm and no ischemic changes. ED tx: Klor-Con 40 mEq p.o., ringer lactate 1 L bolus 84yo with persistent AF, aortic stenosis, HTN not currently on any medications presenting after multiple falls, found to have elevated but flat troponin, mildly elevated CPK. Denied syncope; states he fell because he tripped, then had difficulty getting up off the floor. Cardiology consulted and TTE showed mild-moderate aortic stenosis. Orthostatics negative. Pt in rate-controlled AF. He declined anticoagulation. PT consulted and home VNA/PT services recommended. He should follow up with his sewing machine operator semiautomatic at [facility]. Question of cirrhosis on CT and he can follow up with his primary care provider; consider GI referral for further workup. He did have mild iron deficiency anemia and iron replacement was prescribed. Time Attestation Discharge Coordination Time (in mins): 45 Quality: Safe Use of Opioids Does Pt have an Active Cancer Diagnosis on the Problem List?: No Quality: Stroke Does the patient have a stroke diagnosis?: No Physical Exam Vital Signs: Vital Signs: Last Vital Signs Temp 98.1 F 10/14/24 12:00 Pulse 68 10/14/24 12:00 Resp 18 10/14/24 12:00 BP 117/62 10/14/24 12:00 Pulse Ox 97 10/14/24 12:00 O2 Del Method Room Air 10/14/24 12:00 BMI result Body Mass Index 27.9 Gen: in no acute distress HEENT: sclera anicteric, moist mucus membranes Neck: supple Lungs: clear to auscultation bilaterally Heart: irregular, systolic murmur at base Abd: soft, non-tender, non-distended Ext: no edema Skin: warm/well-perfused Neuro: alert and oriented x3, no focal findings Psych: appropriate affect DS: Data Data Completed and Pending Completed studies during hospitalization [Text1]: Laboratory Results WBC 5.8 X10*3/uL (4.8-10.8) 10/14/24 05:46 RBC 3.24 X10*6/uL (4.60-5.80) L 10/14/24 05:46 Hgb 11.1 g/dl (14.0-18.0) L 10/14/24 05:46 Hct 31.1 % (42.0-52.0) L 10/14/24 05:46 MCV 96.0 fL (80.0-98.0) 10/14/24 05:46 MCH 34.3 pg (27.0-33.0) H 10/14/24 05:46 MCHC 35.7 g/dl (31.0-36.0) 10/14/24 05:46 RDW 16.1 % (11.0-16.0) H 10/14/24 05:46 Plt Count 214 X10*3/uL (160-400) 10/14/24 05:46 MPV 11.1 fL (9.4-12.4) 10/14/24 05:46 Immature Gran % (Auto) 0.3 % (0.0-0.4) 10/13/24 05:49 Neut % (Auto) 52.5 % (45-73) 10/13/24 05:49 Lymph % (Auto) 30.2 % (20-40) 10/13/24 05:49 [place] % (Auto) 15.7 % (2-11) H 10/13/24 05:49 Eos % (Auto) 0.8 % (0-4) 10/13/24 05:49 Baso % (Auto) 0.5 % (0-2) 10/13/24 05:49 Lymph # (Auto) 1.9 X10*3/uL (1.2-4.9) 10/13/24 05:49 [place] # (Auto) 1.0 X10*3/uL (0.1-1.2) 10/13/24 05:49 Eos # (Auto) 0.1 X10*3/uL (0.0-0.4) 10/13/24 05:49 Baso # (Auto) 0.0 X10*3/uL (0.0-0.2) 10/13/24 05:49 Abs Immat Gran (auto) 0.02 X10*3/uL (0.00-0.03) 10/13/24 05:49 Absolute Neuts (auto) 3.4 x10*3/uL (2.0-8.3) 10/13/24 05:49 Absolute Nucleated RBC 0.000 X10*3/uL (0.0-0.012) 10/14/24 05:46 Nucleated RBC % (auto) 0.0 /100WBC (0.0-0.2) 10/14/24 05:46 Absolute Retic 0.033 X10*6/uL (0.026-0.095) 10/13/24 05:49 Percent Retic 1.0 % (0.5-1.8) 10/13/24 05:49 Immature Retic Fraction 7.2 % (2.3-13.4) 10/13/24 05:49 Retic Hgb Equivalent 37.2 pg (30.0-35.0) H 10/13/24 05:49 D-Dimer High Sensitivty 424 NG/ML 10/12/24 20:20 Sodium 138 mmol/L (135-145) 10/13/24 08:22 Potassium 3.5 mmol/L (3.3-5.1) 10/13/24 08:22 Chloride 109 mmol/L (96-108) H 10/13/24 08:22 Carbon Dioxide 22 mmol/L (22-29) 10/13/24 08:22 Anion Gap 11 (12-20) L 10/13/24 08:22 BUN 14 mg/dL (9-16) 10/13/24 08:22 Creatinine 1.06 mg/dL (0.5-1.4) 10/13/24 08:22 Estim Creat Clear Calc 55.4 10/13/24 08:22 Estimated GFR > 60 10/13/24 08:22 Random Glucose 94 mg/dL (60-115) 10/13/24 08:22 Estimat Average Glucose 100 mg/dL 10/13/24 08:22 Hemoglobin A1c % 5.1 % (<6.0) 10/13/24 08:22 Lactic Acid 1.2 mmol/L (0.5-2.0) 10/12/24 17:14 Calcium 8.6 mg/dL (8.4-10.2) 10/13/24 08:22 Magnesium 2.1 mg/dL (1.6-2.6) 10/13/24 08:22 Iron 24 mcg/dL (45-160) L 10/13/24 08:22 TIBC 179 mcg/dL (228-428) L 10/13/24 08:22 % Saturation 13 % (15-50) L 10/13/24 08:22 Unsat Iron Binding 155 ug/dL 10/13/24 08:22 Ferritin 644 ng/mL (20-250) H 10/13/24 08:22 Total Bilirubin 1.5 mg/dL (0.0-1.0) H 10/12/24 16:51 AST 47 U/L (5-37) H 10/12/24 16:51 ALT 21 U/L (0-40) 10/12/24 16:51 Alkaline Phosphatase 93 U/L (39-117) 10/12/24 16:51 Lactate Dehydrogenase 233 U/L (118-273) 10/13/24 08:22 Total Creatine Kinase 244 U/L (38-174) H 10/14/24 05:46 Troponin I High Sens 132.9 ng/L (<3.5-35.0) H* 10/13/24 01:02 Total Protein 6.1 g/dL (6.5-8.0) L 10/12/24 16:51 Albumin 3.8 g/dL (3.5-5.0) 10/12/24 16:51 Vitamin B12 229 pg/mL (200-900) 10/14/24 05:46 25-OH Vitamin D Total 22.9 ng/mL (>30) L 10/12/24 16:51 Folate 5.3 ng/mL (> or = 4.0) 10/14/24 05:46 Urine Color Yellow 10/12/24 21:18 Urine Appearance Clear 10/12/24 21:18 Urine pH 6.5 (5.0-9.0) 10/12/24 21:18 Ur Specific [place] >= 1.030 (1.005-1.025) H 10/12/24 21:18 Urine Protein 30 (1+) mg/dL (Neg-Trace) H 10/12/24 21:18 Urine Glucose (UA) Negative mg/dL (Negative) 10/12/24 21:18 Urine Ketones Negative mg/dL (Negative) 10/12/24 21:18 Urine Blood Negative (Negative) 10/12/24 21:18 Urine Nitrite Negative (Negative) 10/12/24 21:18 Ur Leukocyte Esterase Negative (Negative) 10/12/24 21:18 Urine RBC 0-2 /HPF (0-2) 10/12/24 21:18 Urine WBC 0-5 /HPF (0-5) 10/12/24 21:18 Ur Squamous Epith Cells 0-2 /HPF (0-2) 10/12/24 21:18 Urine Bacteria None Seen (None Seen) 10/12/24 21:18 Hyaline Casts 0-2 /LPF (0-2) 10/12/24 21:18 Discharge Plan Discharge Anticipated Discharge Date/Time: 10/14/24 12:24 Patient Disposition: Home Health Service Discharge Diagnosis: mechanical falls iron deficiency anemia mild-moderate aortic stenosis Referrals: [facility] [Provider Group, Cardiology] - 2 Weeks Cassandra Limon SHANK BONER [Primary Care Provider, Family Practice] - 1 Week Discharge Medications: New ferrous sulfate 325 mg (65 mg iron) tablet 325 mg PO DAILY Qty: 30 0RF Discharge Orders: Discharge Order (Routine); Ordered 10/14/24 Ordered By: Arian Russo Diet: Advance to usual diet Activity on Discharge: As tolerated Stand Alone Forms: Patient Portal Discharge page Print Language: Algerian Care Plan Goals: fall prevention Health Concerns: mechanical falls iron deficiency anemia mild-moderate aortic stenosis Plan of Treatment: home with VNA/home PT follow up with your sewing machine operator semiautomatic in 2-4 weeks take ferrous sulfate 325 mg once daily; recheck CBC in 1 month Please follow up with your primary care doctor within 1 week. Return to the hospital if you experience recurrent or worsening symptoms. Assessment: See Discharge Summary.
--- NOTE | 2024-10-14 13:07 | MHC.CM.PN ---
Patient medically cleared for dc home w/ new [facility] VNA services. Family will transport. RN aware.
== END 2024-10-14 14:23 | disposition home health service (06) | DRG 558 ==
LOC: HO.ED 18:51 → HO.EDOVER 20:04 → HO.IMC 10-13 19:15
PROVIDERS: Admitting Provider Internal Medicine; Emergency Provider Emergency Medicine; PCP Nurse Practitioner Family; Visit Provider Family Medicine
DX: M62.82 Rhabdomyolysis (principal); I48.19 Other persistent atrial fibrillation; E83.42 Hypomagnesemia; E87.6 Hypokalemia; W19.XXXA Unspecified fall, initial encounter; I35.0 Nonrheumatic aortic (valve) stenosis; K74.69 Other cirrhosis of liver; R29.6 Repeated falls; D50.9 Iron deficiency anemia, unspecified; K74.00 Hepatic fibrosis, unspecified; K74.60 Unspecified cirrhosis of liver
CPT/HCPCS: 36415; 70450; 71260; 72125; 74177; 76705; 80048; 80053; 81001; 82306; 82550; 82607; 82728; 82746; 83036; 83540; 83605; 83615; 83735; 84484; 85025; 85027; 85045; 85379; 93005; 93306; 97161; 99285; J1650; J7120; Q9957

== ENCOUNTER → 2024-10-12 17:36 | Outpatient (BNV) | payer MEDICARE, SELFPAY | PROVIDERS: Admitting Provider Internal Medicine; Emergency Provider Emergency Medicine; Visit Provider Radiology Diagnostic Radiology | DX: M54.50 Low back pain, unspecified (principal); S29.9XXA Unspecified injury of thorax, initial encounter; M54.2 Cervicalgia; W19.XXXA Unspecified fall, initial encounter; Z04.3 Encounter for examination and observation following other accident | CPT/HCPCS: 70450; 71260; 72125; 74177 ==

== ENCOUNTER 2024-10-12 19:26 | Outpatient (BNV) | payer MEDICARE, SELFPAY | END 2024-10-13 14:39 | PROVIDERS: Admitting Provider Internal Medicine; Emergency Provider Emergency Medicine; PCP Nurse Practitioner Family; Visit Provider Radiology Diagnostic Radiology | DX: K74.60 Unspecified cirrhosis of liver (principal); I86.8 Varicose veins of other specified sites | CPT/HCPCS: 76705 ==

== ENCOUNTER 2024-10-12 19:26 | Outpatient (BNV) | payer MEDICARE, SELFPAY | END 2024-10-13 07:00 | PROVIDERS: Admitting Provider Internal Medicine; Emergency Provider Emergency Medicine; PCP Nurse Practitioner Family; Visit Provider Internal Medicine Cardiovascular Disease | DX: I35.0 Nonrheumatic aortic (valve) stenosis (principal); I51.7 Cardiomegaly; I51.89 Other ill-defined heart diseases | CPT/HCPCS: 93306 ==

== ENCOUNTER → 2024-10-12 19:26 | Outpatient (BNV) | payer MEDICARE, SELFPAY | PROVIDERS: Admitting Provider Internal Medicine; Emergency Provider Emergency Medicine; Visit Provider Internal Medicine | DX: I48.91 Unspecified atrial fibrillation (principal); I35.0 Nonrheumatic aortic (valve) stenosis; R29.6 Repeated falls | CPT/HCPCS: 99223; 99232; 99239; G0180 ==

== ENCOUNTER → 2024-10-12 19:26 | Outpatient (BNV) | payer MEDICARE, SELFPAY | PROVIDERS: Admitting Provider Internal Medicine; Emergency Provider Emergency Medicine; PCP Nurse Practitioner Family; Visit Provider Internal Medicine Cardiovascular Disease | DX: I35.0 Nonrheumatic aortic (valve) stenosis (principal); I48.91 Unspecified atrial fibrillation; R29.6 Repeated falls | CPT/HCPCS: 93010; 99223; 99232 ==